=== PATIENT | female | born 1940 | race Two or more races ===

== ENCOUNTER 2023-02-01 14:38 | Outpatient (REF) | payer MEDICARE, MEDICAID, SELFPAY ==
--- NOTE | ~2023-02-01 | XR_ITS ---
EXAMINATION: XR HIP, RIGHT CLINICAL INFORMATION: Pain status-post fall. COMPARISON: None available. TECHNIQUE: AP and frog-leg lateral views of the right hip. FINDINGS: There is mild bony demineralization. The right acetabular joint space is well-maintained. There is slight peripheral osteophyte formation of the right acetabular roof. The right femoral head is smooth. There is no fracture or dislocation. Abdominopelvic herniorrhaphy mesh is noted. No foreign body is seen. XR/XR hip RT min 2V IMPRESSION: There is very mild osteoarthritic change of the right hip. No fracture or dislocation is seen.
--- NOTE | ~2023-02-01 | XR_ITS ---
EXAMINATION: XR WRIST, LEFT CLINICAL INFORMATION: Pain status-post fall. COMPARISON: None available. TECHNIQUE: PA, lateral, and oblique views of the left wrist are submitted, together with a dedicated navicular view.. FINDINGS: There is mild bony demineralization. There is a mild ulnar positive variance. No fracture or dislocation is seen. The proximal and distal carpal rows are intact. There is mild osteoarthritic change of the first carpometacarpal joint. The soft tissue planes are unremarkable, without gas or foreign body. There are atherosclerotic calcifications. XR/XR wrist LT 2V IMPRESSION: 1. No fracture or dislocation is seen. 2. There is mild osteoarthritic change of the left first carpometacarpal joint.
== END 2023-02-01 14:39 | disposition home or self-care (01) ==
LOC: HO.XRAY 14:38
PROVIDERS: PCP Internal Medicine; Visit Provider Internal Medicine
DX: M25.551 Pain in right hip (principal); M25.532 Pain in left wrist; Z91.81 History of falling
CPT/HCPCS: 73100; 73502

== ENCOUNTER 2023-12-08 10:04 | Outpatient (REF) | payer OTHER, SELFPAY ==
[2023-12-08 10:21] LABS: MANUAL DIFF FLAG NO
[2023-12-08 10:59] LABS: Basophils Percent Auto 0.3 % (0-2); Eosinophils Absolute Auto 0.1 X10*3/uL (0.0-0.4); Hematocrit 30.6 % (37.0-47.0); Hemoglobin 10.6 g/dl (12.0-16.0); Imm Gran Abs Auto 0.04 X10*3/uL (0.00-0.03); Imm Gran Pct Auto 0.7 % (0.0-0.4); Lymphocytes Absolute Auto 1.6 X10*3/uL (1.2-4.9); Lymphocytes Percent Auto 27.2 % (20-40); Mean Corpuscular HGB Conc 34.6 g/dl (31.0-35.0); Mean Corpuscular Hemoglobin 30.6 pg (27.0-33.0); Mean Corpuscular Volume 88.4 fL (80.0-98.0); Mean Platelet Volume 10.2 fL (9.4-12.3); Monocytes Absolute Auto 0.7 X10*3/uL (0.1-1.2); Neutrophils Absolute Auto 3.4 x10*3/uL (2.0-8.3); Neutrophils Percent Auto 58.8 % (45-73); Platelet Count 157 X10*3/uL (160-400); Red Blood Count 3.46 X10*6/uL (4.20-5.50); White Blood Count 5.7 X10*3/uL (4.8-10.8)
[2023-12-08 11:03] LABS: Estimated Average Glucose 128 mg/dL; Hemoglobin A1c % 6.1 % (<6.0)
[2023-12-08 11:31] LABS: Alanine Aminotransferase 21 U/L (0-31); Albumin Level 4.4 g/dL (3.5-5.0); Alkaline Phosphatase 86 U/L (39-117); Anion Gap 15 (12-20); Aspartate Amino Transferase 23 U/L (5-31); Bilirubin Total 1.3 mg/dL (0.0-1.0); Blood Urea Nitrogen 16 mg/dL (9-16); Calcium 9.8 mg/dL (8.4-10.2); Carbon Dioxide 27 mmol/L (22-29); Chloride 99 mmol/L (96-108); Cholesterol 174 mg/dL (<200); Estimated Glomerular Filt Rate > 60; Glucose Random 136 mg/dL (60-115); HDL Cholesterol 68 mg/dL (>40); LDL Cholesterol Calculated 84 mg/dL (<100); Potassium 4.6 mmol/L (3.3-5.1); Sodium 136 mmol/L (135-145); Total Protein 7.2 g/dL (6.5-8.0); Triglycerides 111 mg/dL (<150)
[2023-12-08 11:45] LABS: Vitamin D 25-OH Total 21.7 ng/mL (>30)
[2023-12-08 11:51] LABS: Microalbum/Creatinine Ratio Ur 132.2 ug/mg cr (<30)
[2023-12-08 11:53] LABS: Vitamin B12 620 pg/mL (200-900)
== END 2023-12-08 10:05 | disposition home or self-care (01) ==
LOC: HO.LAB 10:04
PROVIDERS: PCP Internal Medicine; Visit Provider Internal Medicine
DX: D64.9 Anemia, unspecified (principal); E11.9 Type 2 diabetes mellitus without complications; E78.00 Pure hypercholesterolemia, unspecified; I10 Essential (primary) hypertension; M81.8 Other osteoporosis without current pathological fracture
CPT/HCPCS: 36415; 80053; 80061; 82043; 82306; 82570; 82607; 83036; 85025

== ENCOUNTER 2024-03-15 10:48 | Outpatient (REF) | payer OTHER, SELFPAY ==
[2024-03-15 14:50] LABS: Estimated Average Glucose 126 mg/dL
[2024-03-15 15:00] LABS: Alanine Aminotransferase 31 U/L (0-31); Albumin Level 4.5 g/dL (3.5-5.0); Alkaline Phosphatase 87 U/L (39-117); Anion Gap 18 (12-20); Aspartate Amino Transferase 44 U/L (5-31); Blood Urea Nitrogen 18 mg/dL (9-16); Calcium 10.2 mg/dL (8.4-10.2); Carbon Dioxide 27 mmol/L (22-29); Chloride 97 mmol/L (96-108); Estimated Glomerular Filt Rate 58; Glucose Random 105 mg/dL (60-115); Potassium 4.6 mmol/L (3.3-5.1); Sodium 137 mmol/L (135-145); Total Protein 7.4 g/dL (6.5-8.0)
== END 2024-03-15 10:49 | disposition home or self-care (01) ==
LOC: HO.LAB 10:48
PROVIDERS: PCP Internal Medicine; Visit Provider Internal Medicine
DX: Z00.01 Encounter for general adult medical examination with abnormal findings (principal); I10 Essential (primary) hypertension; E78.00 Pure hypercholesterolemia, unspecified; E11.9 Type 2 diabetes mellitus without complications; D46.9 Myelodysplastic syndrome, unspecified
CPT/HCPCS: 36415; 80053; 83036

== ENCOUNTER 2024-04-23 09:23 | Outpatient (REF) | payer OTHER, SELFPAY ==
[2024-04-23 11:36] LABS: Anion Gap 12 (12-20); Blood Urea Nitrogen 18 mg/dL (9-16); Calcium 10.1 mg/dL (8.4-10.2); Carbon Dioxide 29 mmol/L (22-29); Chloride 97 mmol/L (96-108); Estimated Glomerular Filt Rate 60; Glucose Random 140 mg/dL (60-115); Potassium 4.6 mmol/L (3.3-5.1); Sodium 133 mmol/L (135-145)
== END 2024-04-23 09:24 | disposition home or self-care (01) ==
LOC: HO.LAB 09:23
PROVIDERS: PCP Internal Medicine; Visit Provider Nurse Practitioner
DX: I42.9 Cardiomyopathy, unspecified (principal)
CPT/HCPCS: 36415; 80048

== ENCOUNTER 2024-11-15 09:39 | Outpatient (REF) | payer OTHER, SELFPAY ==
--- OUTSIDE RECORDS SUMMARY | 2024-11-15 09:43 | XMS_ITS ---
Author Organization [facility] Address [address], [place] [id number] Care Team Providers Care Blueprint Reproducer Name Role Phone CASSIE WOODARD Primary Care Provider Unavail able ROSELIA OLMEDO, HORACIO Unavailable [phone] MANUELA NAM Unavailable [phone] Migration, Provider Unavailable Unavailable Allergies Allergen (clinical drug ingredient) Drug/Non Drug Allergy documented on EMR Reaction Allergy Type Onset Date Status acetaminophen / oxycodone Percocet Unknown Drug Allergy Active ibuprofen Motrin IB Unknown Drug Allergy Active risedronate Actonel Unknown Drug Allergy Activ e VICODIN (uncoded) Unknown Allergy Ac tive BONIVA (uncoded) Unknown Allergy Act dianna oxycodone oxyCODONE Unknown Drug Allergy Active REASON FOR VISIT Multum To [facility] Conversion Encounter Medications Medication SIG (Take, Route, Frequency, Duration) Notes Start Date End Date Status Irbesartan 150 MG 1 tab(s) orally once a day for 90 days 12/09/2020 Active Lovastatin 10 MG 1 tab(s) orally once a day Active metFORMIN HCl 850 MG 1 tab(s) orally once a day (in the morning) Active Folic Acid 1 MG 1 tab(s) orally once a day Active Ferrous Sulfate 325 (65 Fe) MG 1 tab(s) orally once a day Active Calcium 600 + D 600 MG-200 UNITS 1 TAB(S) ORALLY 3 TIMES A DAY for 30 DAY(S) *Please review and pick correct strength-formulation from [employer] options. If intended option is not shown, discontinue and re-order from Quick Search* Active OXYGEN *Please review f or potential replacement for e-prescription and drug interaction check* Active Irbesartan-hydroCHL OROthiazide 150-12.5 MG 1 tab(s) orally once a day Active Encounters Encounter Location Date Provider Diagnosis [address] [id number] 08/02/2024 Provider Migration Essential hypertension I10 Assessments Encounter Date Diagnosis (ICD Code) Assessment Notes Treat ment Notes Treatment Clinical Notes 08/02/2024 Essential hypertension (ICD-10 - I10) Plan Of Treatment Medication Medication Name Sig Start Date Stop Date Notes Irbesartan-hydroCHLOROthiazi de 150-12.5 MG 1 tab(s) orally once a day Progress Notes * HELENA BENNETTADOB: [birth year] (84 yo F)Acc No.[id number]:08/02/2024 Patient:?JOSE BENNETT Provider:?Provider Migration :1940???Age:84 Y???Sex:Female D ate:08/02/2024 Address:[address] [place] [address], [address] [place], [place] [id number] Pcp:CASSIE WOODARD Subjective: * Chief Complaints: * ???1. Multum To [facility] Con version Encounter. * Medical History:? * Medications:?Taking Irbesart an 150 MG Tablet 1 tab(s) orally once a day , Taking Lovastatin 10 MG Tablet 1 tab(s) orally once a day , Taking metFORMIN HCl 850 MG Tablet 1 tab(s) orally once a day (in the morning) , Taking Folic Acid 1 MG Tablet 1 tab(s) orally once a day , Taking Ferrous Sulfate 325 (65 Fe) MG Tablet Delayed Release 1 tab(s) orally once a day , Taking Calcium 600 + D 600 MG-200 UNITS TABLET 1 TAB(S) ORALLY 3 TIMES A DAY , Notes to Pharmacist: *Please review and pick correct strength-formulation from [facility] options. If intended option is not shown, discontinue and re-order from Quick Search*, Taking OXYGEN , Notes to Pharmacist: *Please review for potential replacement for e-prescription and drug interaction check* * Allergies:?Actonel, BONIVA, Motrin IB, Percocet, VICODIN, oxyCODONE. Objective: * Vitals:? Assessment: * Assessment: 1.?Essential hypertension - I10??? Plan: * Treatment: * Images: * Electronic signature of Prov ider Migration on 11/15/2024 at 09:43 AM EST Sign off status: Pending * Provider:?Provider Migration Date:?08/02 Generated for Jeff domingo/Daisy/Madi on:?11/15/2024 09:43 AM EST
--- OUTSIDE RECORDS SUMMARY | 2024-11-15 09:43 | XMS_ITS | Clinical Summary ---
Author Organization [facility] Address [address] [place] [address] Care Team Providers Care Semiconductor Wafer Inspector Name Role Phone Unavailable Primary Care Provider Unavailabl e Source Comments PLEASE NOTE, if this patient is a minor, it may be UNLAWFUL to discuss sensitive information that is contained in these records (such as FAMILY PLANNING, MENTAL HEALTH or SUBSTANCE ABUSE) with the minor patient's parent or other person without the patient's specific authorization.[facility] Immunizations Name Administration Dates Next Due MODERNA COVID-19 VACCINE BIV ALENT, BLUE CAP, 6M+ 08/23/2022 Moderna COVID-19 Vaccine, re d cap blue label, 12+ Primary Series 06/10/2021,10/25/2020,09/27/2020 Social History Tobacco Use Types Packs/Day Years Used Date Smoking Tobacco: Never Assessed Social Connections Answer Date Recorded Connectedness 0 06/07/2024 Financial Resource Strain Answer Date R ecorded Financial Resource Strain 0 2021 Stress Answer Date Recorded Stress 0 08/23/2022 Physical Activity Answer Date Recorded Physical Activity 0 08/23/2022 Food Insecurity Answer Date Recorded Food 0 06/19/2024 Transportation Needs Answer Date Record ed Transportation 0 08/23/2022 Housing Stability Answer Date Recorded Housing 0 08/23/2022 Safety and Environment Answer Date Byron rded Safety 0 08/23/2022 Utilities Answer Date Recorded Utilities 0 08/23/2022 Employment Answer Date Recorded Stress 0 06/07/2024 Comments Unknown Sex and Gender Information Value Date Recorded Sex Assigned at Not on file Legal Sex Female 7:38 AM PST Gender Identity Not on file Sexual Orientation Not on file Plan of Treatment Health Maintenance Due Date Last Done Comments Tobacco Screening 1940 Advanced Care Planning 1940 Hypertension Screening (#1) 1959 Medicare Annual Wellness Visit 1959 Imm-Zoster, Recombinant (1 of 2) 1991 Bone Density Screening 2006 Falls Prevention 2006 Imm-DTaP/Tdap/Td (1 - Tdap) 11/08/2011 11/07/2011 [id number] ( season) 2024 08/23/2022, 06/10/2021, 10/25/2020, Additional history exists Imm-Influenza (#1) 2024 07/09/2018, 0 06/22/2017, 07/31/2016, Additional history exists Alcohol and Drug Screen 09/24/2024 Depression Annual Screen 09/24/2024 Imm-Pneumococcal 65+ Completed 07/23/2014, 10/10/19 08 [place] - [place]
--- OUTSIDE RECORDS SUMMARY | 2024-11-15 09:43 | XMS_ITS | Patient Health Record ---
Author Organization [facility] Address [address] [place] [address] Care Team Providers Care Client Care Consultant Name Role Phone Marcia Jauregui MD, Whitney Primary Care Provider Allergies Allergen (clinical drug ingredient) Drug/Non Drug Allergy documented on EMR Reaction Allergy Type Onset Date Status risedronate Actonel stomach upset Drug Allergy A ctive diphenhydramine / ibuprofen Advil PM anxiety Drug Allergy Active ibandronate Boniva stomach upset Drug Allergy A ctive Codeine Phosphate anxiety Drug Allergy Active oxycodone Oxycodone HCl anxiety Drug Allergy Act dianna acetaminophen / oxycodone Percocet shortness of breath Drug Allergy Active Tylenol PM Extra Strength anxiety Drug Allergy Active Vicodin shortness of breath Drug Allergy Active Reason For Referral No Information Medications Medication SIG (Take, Route, Frequency, Duration) Notes Start Date End Date Status metFORMIN HCl 850 MG 1 Tablet Orally Twice a day for 90 days dm Active Fluticasone Propionate 50 MCG/ACT 2 sprays in each nostril Nasally Once a day Active Irbesartan-hydroCHLORO thiazide 150-12.5 MG 1 tablet Orally Once a day for 90 days Active Emy-Sequels 65-25 MG 1 tablet Orally O nce a day Active B-12 2500 MCG as directed Sublingual supplements Active Folic Acid 1 MG 1 tablet Orally Once a day Not-Taking Vitamin C 500 MG 1 tablet Orally Once a day supplements Active Irbesartan 150 MG 1 tablet Orally Once a day htn Not-Taking Lovastatin 10 MG 1 tablet with the evening meal Orally Once a day for 90 days chol Active Turmeric Curcumin 5-1000 MG 1 caps Orally daily Active Social History Tobacco Use: Social History Observation Description Date Details (start date - stop date) Never Smoker NA - NA Sex Assigned At : Social History Observation Description Sex Assigned At Female Tobacco Use Smoking Question Answer Notes Are you a nonsmoker Alcohol Screen Question Answer Notes Did you have a drink containing alcohol in the p ast year? No Points 0 Interpretation Negative Sexual History Question Answer Notes Had sex in the past 12 months (vaginal, oral, or anal)? No Have you ever had a Sexually transmitted disease ? No Tobacco use other than smoking: Question Answer Notes Are you an other tobacco user? No Problems Problem Type SNOMED Code ICD Code Onset Dates Problem Status W/U Status Risk Notes Problem 00128177 Atherosclerosis of aorta (I70.0) Active confirmed Problem 604256806216031 Hypertensive chronic kidney disease with stage 1 through stage 4 chronic kidney disease, or unspecified chronic kidney disease (I12.9) Active confirmed Problem 25404741 Type 2 diabetes mellitus with diabetic chronic kidney disease (E11.22) Active confirmed Problem 46684397 Hyperlipidemia, unspecified (E78.5) Active confirmed Problem 18889499 Type 2 diabetes mellitus with other specified complication (E11.69) Active confirmed Problem Hypertensive heart AND chronic kidney disease with congestive heart failure (83220037566505) Hypertensive heart and chronic kidney disease with heart failure and stage 1 through stage 4 chronic kidney disease, or unspecified chronic kidney disease (I13.0) Active confirmed Problem 23879130 Liver cyst (K76.89) Active confirmed Problem 893912166 Myelodysplastic syndrome (D46.9) Active confirmed Problem 19787251 Left ventricular hypertrophy (I51.7) Active confirmed Problem 254042766 Congestive heart failure, NYHA class 1 and ACC/AHA stage B (I50.9) Active confirmed Problem 59564614 DM (diabetes mellitus), type 2 with peripheral vascular complications (E11.51) Active confirmed Problem 23935487 Type 2 diabetes mellitus with both eyes affected by mild nonproliferative retinopathy without macular edema, without long-term current use of insulin (E11.3293) Active confirmed Problem Chronic kidney disease stage 2 (139249507) Stage 2 chronic kidney disease (N18.2) Active confirmed Problem 123922133 Chronic kidney disease, stage 3a (N18.31) Active confirmed Plan Of Treatment Future Test Test Name Order Date Comp. Metabolic Panel (14) (CMP) 021 Uric Acid, Serum 07/02/2021 PTH, Intact 07/02/2021 Vitamin D, 25-Hydroxy 07/02/2021 Lipid Panel 07/02/2021 Homocyst(e)ine, Plasma 07/02/2021 Comp. Metabolic Panel (14) (CMP) 021 Hgb A1c with eAG Estimation 07/02/2021 CBC (INCLUDES DIFF/PLT) 07/02/2021 Albumin/Creatinine Ratio, Random Urine [id number] and [id number] 07/02/2021 Insurance Providers Payer Name Payer Address Payer Phone Subscriber Number Group Number Insured Name Patient Relationship to Insured Coverage Start Date Coverage End Date [employer] ADV HMO [address] [place] [address] [id number] JOSE BENNETT Self - patient is the insured Medical (General) History Medical History History ICD Code diabetes dyslipidemia hypertension retinopathy liver cyst renal cyst myelodisplastic syndrome Surgical History Surgery Date(Month/Year) hernia 2017 eye surgery 2013
--- OUTSIDE RECORDS SUMMARY | 2024-11-15 09:43 | XMS_ITS | Patient Health Record ---
Author Organization [facility] Address [address] [place], [place] [address] Care Team Providers Care Registered Nurse Teacher Name Role Phone CASSIE WOODARD Primary Care Provider Unavail able ROSELIA OLMEDO, HORACIO Unavailable [phone] MANUELA NAM Unavailable [phone] Migration, Provider Unavailable Unavailable Allergies Allergen (clinical drug ingredient) Drug/Non Drug Allergy documented on EMR Reaction Allergy Type Onset Date Status acetaminophen / oxycodone Percocet Unknown Drug Allergy Active ibuprofen Motrin IB Unknown Drug Allergy Active risedronate Actonel Unknown Drug Allergy Activ e VICODIN (uncoded) Unknown Allergy Ac tive BONIVA (uncoded) Unknown Allergy Act dianna oxycodone oxyCODONE Unknown Drug Allergy Active Reason For Referral No Information Medications Medication SIG (Take, Route, Frequency, Duration) Notes Start Date End Date Status Calcium 600 + D 600 MG-200 UNITS 1 TAB(S) ORALLY 3 TIMES A DAY for 30 DAY(S) *Please review and pick correct strength-formulation from [employer] options. If intended option is not shown, discontinue and re-order from Quick Search* Active OXYGEN *Please review f or potential replacement for e-prescription and drug interaction check* Active Irbesartan-hydroCHL OROthiazide 150-12.5 MG 1 tab(s) orally once a day Active Irbesartan 150 MG 1 tab(s) orally once a day for 90 days 12/09/2020 Active Lovastatin 10 MG 1 tab(s) orally once a day Active metFORMIN HCl 850 MG 1 tab(s) orally once a day (in the morning) Active Folic Acid 1 MG 1 tab(s) orally once a day Active Ferrous Sulfate 325 (65 Fe) MG 1 tab(s) orally once a day Active Social History Tobacco Use: Social History Observation Description Date Details (start date - stop date) Never Smoker NA - NA Alcohol Screen Question Answer Notes Did you have a drink contain ing alcohol in the past year? Yes How often did you have a dri nk containing alcohol in the past year? Monthly or less (1 point) How many drinks did you have on a tpical day when you were drinking in the past year? 1 or 2 (0 points) How often did you have six o r more drinks on one occassion in the past year? Never (0 points) Points 1 Interpretation Negative Smoking Question Answer Notes Are you a: never smoked Problems Problem Type SNOMED Code ICD Code Onset Dates Problem Status W/U Status Risk Notes Problem Essential hypertension (98619690) Essential hypertension (I10) Active confirmed Problem 428363282 Mixed hyperlipidemia (E78.2) Active confirmed Problem Left bundle branch block (71580358) LBBB (left bundle branch block) (I44.7) Active confirmed Problem 042055574518135 Obesity (BMI 30.0-34.9) (E66.9) Active confirmed Problem 799025462 Type 2 diabetes mellitus without complication, without long-term current use of insulin (E11.9) Active confirmed Problem 521547976 MDS (myelodysplastic syndrome) (D46.9) Active confirmed Encounters Encounter Location Date Provider Diagnosis [address] [id number] 08/02/2024 Provider Migration Essential hypertension I10 Assessments Encounter Date Diagnosis (ICD Code) Assessment Notes Treat ment Notes Treatment Clinical Notes 08/02/2024 Essential hypertension (ICD-10 - I10) Plan Of Treatment Pending Test Test Name Order Date ECHO 2D MODE WITH DOPPLER IF NECESSARY 12/09/2020 EKG 12/09/2020 Insurance Providers Payer Name Payer Address Payer Phone Subscriber Number Group Number Insured Name Patient Relationship to Insured Coverage Start Date Coverage End Date Who is Undercover [employer] [address] [place] [address] [id number] SABRINA, JOSE Self - patient is the insured Medical (General) History Medical History History ICD Code LBBB Hypertension Hyperlipidemia Type II diabetes Obesity Osteoporosis Glaucoma Surgical History Surgery Date(Month/Year) Cholecystectomy Hernia repair Intestinal Sx.
--- OUTSIDE RECORDS SUMMARY | 2024-11-15 09:43 | XMS_ITS | Data Portability ---
Author Organization [employer] [place] [employer] Address [address] [place] [phone] Care Team Providers Care Industrial Pharmacist Name Role Phone HIM CCA OTHER Assessment Encounter Date Assessment Date Assessment LastModified by Organization Details LastModified Time 09/19/2024 09/19/2024 I provided real -time medical direction via phone for this encounter and was available for additional phone-based assistance as needed. I have reviewed and agree with the Assessment and Plan as documented by the Validation Manager. Patient given the opportunity to ask questions. Our service contacted for an assessment of: Viral upper respiratory tract infection As per above, patient with about a week's worth of nasal congestion and a nonproductive cough. Patient taking [id number] Mucinex. On a positive trajectory. Denies fever chills. No sick contacts. Per dye expert on the scene, vital signs are stable and patient is afebrile. No hypoxemia seen on room air. Lungs are clear to auscultation per dye expert on the scene Impression: Viral URI with over a week's worth of symptoms on a positive trajectory Plan: Continue Mucinex as prescribed. Red flags discussed as when to seek a higher level of care or recall this service. All questions answered. Allergies: Reviewed PCP f/u: We discussed the diagnostic uncertainty of home visits and the risk associated with this. In this case, the patient and I felt this to be an acceptable and reasonable amount of risk given the benefit of avoiding an ED visit. We discussed the need to seek care urgently/emergen tly in the setting of any new or worsening serious symptoms, particularly fever chills [email or web address] Not available 09/19/2024 19:12:30 Plan of Treatment Reminders Order Date Submit Date Provider Last Modified By Organization Details Last Modified Time Details Appointments None record ed. Lab None record ed. Referral None record ed. Procedures None record ed. Surgeries None record ed. Imaging None record ed. Medication Orders None record ed. Patient TargetsNo targets recorded. Patient InstructionsNo instructions recorded. Reason for Referral None Reported. Medical Equipment None Reported. Allergies Allergen ID Allergen Name Allergen Category Reaction Reaction Severity Criticality Documentation Date Start Date Code Code System Note Provider Name and Address Organization Details Recorded Time 59975 oxycodone medicatio n Not available Not available Not available 09/19/2024 7804 RxNorm Not Available [facility] 4 12:09:50 83276 hydrocodo ne Not available Not available Not available Not available 09/19/2024 5489 RxNorm Not Available [facility] 4 12:09:50 47101 acetamino phen / oxycodone medicatio n Not available Not available Not available 09/19/2024 11046 3 [facility] 88199 Boniva medicatio n Not available Not available Not available 09/19/2024 79606 4 [facility] 12:09:50 81361 Tylenol medicatio n Not available Not available Not available 09/19/202488171 3 [facility] 12:[facility]50 Medications Name Sig Start Date Stop Date Status Note LastModified by Organization Details LastModified Time lovastatin 40 mg tablet TOME 1 TABLETA POR V A ORAL TODOS LOS D active Not Available Not Available No t Available metformin 850 mg tablet TOME 1 TABLETA POR V A ORAL DOS VECES AL D A active Not Available Not Available No t Available glimepiride 1 mg tablet TAKE 1 TABLET ORALLY WITH BREAKFAST OR THE FIRST MAIN MEAL OF THE DAY ONCE A DAY FOR 90 DAYS active Not Available Not Available No t Available ibuprofen 400 mg tablet TAKE ONE TABLET BY MOUTH THREE TIMES A DAY active Not Available Not Available No t Available gabapentin 300 mg capsule TOME 1 C PSULA POR V A ORAL PORTILLO VECES AL D A POR 10 D active Not Available Not Available No t Available irbesartan 75 mg tablet TOME 1 TABLETA POR V A ORAL TODOS LOS D active Not Available Not Available No t Available cyanocobalami n (vit B-12) 1,000 mcg sublingual tablet TAKE 1 LOZENGE BY MOUTH EVERY SUNDAY, SUNDAY AND SUNDAY active Not Available Not Available No t Available furosemide 20 mg tablet TOME 1 TABLETA POR V A ORAL TODOS LOS D FOR 90 DAYS active Not Available Not Available No t Available irbesartan 150 mg tablet TOME BRAXTON TABLETA TODOS LOS D active Not Available Not Available No t Available amoxicillin 875 mg-potassium clavulanate 125 mg tablet TOME 1 TABLETA POR V A ORAL CADA 12 HORAS POR 7 D active Not Available Not Available N ot Available Vitamin D3 25 mcg (1,000 unit) tablet TOME 1 TABLETA POR V A ORAL TODOS LOS D active Not Available Not Available No t Available Insta-Glucose (with dextrin) 24 gram/31 gram oral gel DIRECTED ORALLY FOR POC LESS THAN 70 99 DAYS active Not Available Not Available No t Available Vitals Date Recorded Body temperature Respiratory rate Heart rate Body weight Oxygen saturation Oxygen saturation in Arterial blood by Pulse oximetry Systolic blood pressure Diastolic blood pressure Provider Name and Address Organization Details Last Updated DateTime 4 100.1 [degF] 16 /min 98 /min 92637.6 16 g 95 % 95 % 156 mm[Hg] 80 mm[Hg] Not Available [facility] 4 19:10:28 Social History None recorded. Functional Status None recorded. Mental Status None recorded. Family History Nothing Reported. Medical History No medical history recorded. Gynecological HistoryNo gynecological history recorded. Obstetrics History GPAL:G 0 P 0 0 0 0 Past Encounters Encounter ID Performer Location Encounter Start Date Encounter Closed Date Diagnosis/Indication Diagnosis SNOMED-CT Code Diagnosis ICD10 Code Diagnosis Note [id number] Ana Maria Burger MD [facility] [address] [place] [phone] 09/19/2024 19:10:26 09/19/2024 20:12:26 Viral upper respiratory tract infection 426092657 J06.9 Health Concerns Section Related Observation LastModified by Organization Detai ls LastModified Time None Recorded Concern Status LastModified by Organization Details LastModified Time None Recorded Advance Directives Directive None Recorded Payers Encounter Date Sequence Insurance Name Policy Number Policy Rhodes Covered Member ID Rhodes Member ID Guarantor Name 09/19/2024 1 [facility] - DOS ON OR AFTER 2022 - DUAL ELIGIBLE - [facility] [employer] AND ONE [employer] (MEDICARE REPLACEMENT/ADV ANTAGE - HMO) Nicole Gus [id number] Nicole Weber Notes Date Note Type Note Provider Name and Address Organization Details Recorded Time 09/19/2024 text/html [facility] Nurse Triage Notes (Roseline Farias - RN): Reason For Request: Patient is congested, and difficult to breath at times, sick for a few days, and has gotten a nose bleed in the last few days. Patient Reports: Cough, fever greater than 2 days ; Cough; Shortness of breath with exertion; Pain with inspiration Denies: Increased work of breathing/labored ? with or without fever Unable to speak in full sentences without distress Discoloration of skin -cyanosis Needs to sleep sitting up, can? t catch breath Shortness of breath in setting of confusion Lower extremity swelling History of asthma, increased use of inhaler COPD COVID Exposure Sputum increase Chief Complaints: Breathing problems PMH: Hyperlipidemia, Hypertension, Diabetes Mellitus Type 2 Comments: Cold symptoms started on Sunday with voice hoarseness. Increased congestion, non-productive cough and body aches today. Taking Mucinex. Reported a fever on Sunday, took Tylenol with relief. Feels short of breath with coughing episdoes. Reports chest pain with coughing. .................. .................. .................. .................. .................. .................. .................. ............... Validation Manager Note From Ronald Chairez: Pt co dry cough for 5 days. Pt denies NC, runny nose, body aches or chills, CP, SOB, dizziness, headache or NVD. Baseline vitals assessed WNL, Lungs had mild rhonchi bilaterally. Pt taking musinex with some relief. Pt daughter sts she going out to pharmacy to get another bottle for her. Pt sts has been taking Tylenol as well. Pt took 1g Tylenol on arrival. Pt slightly febrile. [facility] [place] contacted and advised to continue with self care and otc musinex. Tylenol for fever. Education provided on signs indicating the ER. Pt advised to monitor symptoms and advised if worsen to contact PCP for X-rays. .................. .................. .................. .................. .................. .................. .................. ............... [facility] [place] Consulted: Ana Maria Burger .................. .................. .................. .................. .................. .................. .................. ............... Disposition: Fulfilled Ana Maria Burger MD [address] [facility],[address], [place], [phone], [employer] 09/19/2024 19:12:38 OBGyn Episode No OBEpisode recorded.
--- OUTSIDE RECORDS SUMMARY | 2024-11-15 09:43 | XMS_ITS | Data Portability ---
Author Organization [facility], Main Office Address [address] [facility] [address] [place] [address] Care Team Providers Care Counter Help Name Role Phone PATRICIAELLIOT JEFFRIES Primary Care Provider OSMAR TOBIN Track Patrol FLORENCIO BRODY Storage Battery Tester KE CARLOS Clinical Trial Coordinator [facility] (DIV OF HEMATOLOGY ONCOLOGY) Tile Setter Supervisor Assessment No assessment recorded. Plan of Treatment Reminders Order Date Submit Date Provider Last Modified By Organization Details Last Modified Time Details Appointments None recorded. Lab lipid panel, serum 2018 019 rkanu [facility], [address] [place], [address], 9 11:47:10 CMP, serum or plasma 2018 019 rkanu [facility], [address] [place], [address], 9 11:47:10 CBC w/ auto diff 2018 019 rkanu [facility], [address] [place], [address], 9 11:47:10 urinalysi s, complete 2018 019 NICOLETTE [facility], [address] [place], [address], 9 11:17:01 HbA1c (hemoglob in A1c), blood 2018 019 rkanu [facility], [address] [place], [address], 9 11:47:10 microalbu min, urine 2018 019 rkanu [facility], [address] [place], [address], 9 11:47:10 urinalysi s complete, reflex culture 2017 018 abolcun [facility], [address] [place], [address], 9 10:43:49 CBC w/ auto diff 2017 018 NICOLETTE [facility], [address], [address], [place], [address], 8 19:58:52 hepatic function panel, serum 2017 018 NICOLETTE [facility], [address], [address], [place], [address], 8 21:40:09 lipase, serum or plasma 2017 018 NICOLETTE [facility], [address], [address], [place], [address], 8 21:40:10 urinalysi s complete, reflex culture 2017 018 NICOLETTE [facility], [address] [place], [address], 8 01:46:45 hemoglobi n A1C, fingersti ck 2017 018 [email or web address] In-Office Order, Internal Use Only DO Not Attach Compendium DO Not Attach Compendium, Do Not Delete/merge, [id number] 8 10:48:02 Referral nutrition ist/dieti álvaro referral 2018 019 abolcun Not available 9 11:50:43 nutrition ist/dieti álvaro referral 2018 019 abolcun Not available 9 11:50:43 gastroent erologist referral - Needs colon cancer screening in May 282018 019 [email or web address] Angela Wiseman MD, [address], [place], [address], 9 11:26:40 diabetic ophthalmo logy referral 2018 019 abolcun Not available 9 10:31:55 ENT referral - for eval of pt with b/l hearing loss 2017 NICOLETTE Handy MD, [address], [address], [place], [address], 9 13:45:21 Procedures None recorded. Surgeries None recorded. Imaging bone density 2018 019 abolcun Not available 9 13:35:52 MAMMO, screening , bilateral - Perform Diagnosti c Mammogram and Breast Ultrasoun d if needed / Perform Ultrasoun d Guided Aspiratio n and/or Breast Biopsy if warranted 2018 019 NICOLETTE Not available 9 15:37:13 MRI, internal auditory canal, w/wo contrast - rule out acoustic neuroma/C [facility] 2017 NICOLETTE Not available 8 15:48:57 Medication Orders Cipro 500 mg tablet 2018 019 abolcun [facility], [address] [place], [address], 9 10:46:32 codeine 10 mg-guaife nesin 100 mg/5 mL oral liquid 2018 019 INTERFACE [facility], [address] [place], [address], 9 11:30:43 omeprazol e 20 mg capsule,d elayed release 2017 018 INTERFACE [facility], [address] [place], [address], 8 11:30:37 omeprazol e 20 mg capsule,d elayed release 2017 018 INTERFACE [facility], [address] [place], [address], 8 10:48:05 valsartan 80 mg tablet 2017 018 abolcun Not available 9 10:47:12 Patient Targets Encounter Date Encounter Id Patient Goals Patient Target Last Modified By Organization Details Last Modified Time 07/09/2018 [id number] Microalbumin/Cr eatinine Ratio yearly Not available Not available Not available Blood Pressure 130 / 80 Not available Not available Not available Hemoglobin A1C 2 times per yr Not available Not available Not available Hemoglobin A1C <7 Not available Not available Not available LDL Direct <100 Not available Not available Not available Cholesterol, LDL <100 Not available Not available Not available Pt advised and agrees to do moderate exercise (such as walking) for approximately 150 minutes per week; to decrease carbohydrate intake (25 % of total carbohydrates or less); and to monitor blood glucose as directed Will bring meter and/or readings to appointments. Patient preferences and goals incorporated in plan and updated/modifie d as needed to reflect progress toward goal. rebekah Not available 07/09/2018 10:49:45 08/08/2018 [id number] Blood Pressure 140 / 90 Not available Not available Not available jail goal of Exercise level Moderate Not available Not available Not available Tobacco Smoking Status Never Not available Not available Not available Pt advised and agrees to eat a low salt low fat diet; to do moderate exercise (such as walking) 150 minutes per week; to limit alcohol intake (goal of 2 drinks per day or less for men or 1 for woman). and to monitor dietary sodium. Will monitor home blood pressures and bring readings to appointments. Patient preferences and goals incorporated in plan and updated/modifie d as needed to reflect progress toward goal. [email or web address] Not available 08/26/2018 09:21:43 Patient Instructions Encounter Date Encounter Id Patient Instructions Last Modified By Organization Details Last Modified Time 07/09/2018 [id number] hearing loss: ca re instructions awychowski Not available 07/09/2018 10:48:02 dizziness: care instructions awychowski Not available 07/09/2018 10:48:02 type 2 diabetes: care instructions awychowski Not available 07/09/2018 10:48:02 high blood press ure: care instructions awychowski Not available 07/09/2018 10:48:02 learning about h igh blood pressure awychowski Not available 07/09/2018 10:48:02 08/08/2018 [id number] Urinary Tract Infection (UTI) in Women: Care Instructions [email or web address] Not available 08/08/2018 11:30:36 stop valsartan, continue hydrochlorothiazide for now awychowski Not available 08/08/2018 11:31:44 Medications (OTC , herbal therapies, supplements) reviewed and reconciled with patient and or caregiver, including potential side effects, drug interactions, instructions, and the consequences of not taking medication. Reviewed potential barriers to medication adherence, such as side effects from medication or cost of medication. awychowski Not available 08/26/2018 09:22:02 12/17/2018 [id number] call or return f or worsening or concerns [email or web address] Not available 12/17/2018 09:11:51 [facility], all current and discharge medications (OTC, herbal therapies, supplements) reviewed and reconciled with patient and or caregiver, including potential side effects, drug interactions, instructions, and the consequences of not taking medication. Reviewed potential barriers to medication adherence, such as side effects from medication or cost of medication. [email or web address] Not available 12/17/2018 08:18:34 01/07/2019 [id number] high cholesterol : care instructions awychowski Not available 01/07/2019 11:16:57 preventing falls : care instructions awychowski Not available 01/07/2019 11:16:57 medicare prevent dianna services guide (female 74yrs and under) awychowski Not available 01/07/2019 11:16:57 starting a weigh t loss plan: care instructions awychowski Not available 01/07/2019 11:16:57 starting a weigh t loss plan: care instructions awychowski Not available 01/07/2019 11:16:57 high blood press ure: care instructions awychowski Not available 01/07/2019 11:16:57 learning about h igh blood pressure awychowski Not available 01/07/2019 11:16:57 learning about c olon cancer awychowski Not available 01/07/2019 11:16:57 Diabetic Foot Exam awychowski Not availa ble 01/07/2019 11:16:57 Diabetic Eye Exam awychowski Not availab le 01/07/2019 11:16:57 type 2 diabetes: care instructions awychowski Not available 01/07/2019 11:16:57 Per Medicare guidelines I have discussed OUD (Opiate Use Disorder) with the patient and assessed / discussed the benefit of non opioid pain therapies , even if the patient does not have OUD, but is possibly at risk abolcun Not available 01/07/2019 10:44:09 Reason for Referral ENT Referral for Bilateral h earing loss for eval of pt with b/l hearing loss Referring Physician: Elliot Johnson [facility] Michael, Encounter Date: 07/09/2018 Diabetic Ophthalmology Refer ral for Type 2 diabetes mellitus without complication Referring Physician: Elliot Johnson [facility] Michael, Encounter Date: 01/07/2019 Theater Teacher Referral for Screening for malignant neoplasm of colon Needs colon cancer screening in Sept Referring Physician: Family Michael Gasca, Encounter Date: 01/07/2019 Telephone Answerer/dietitian Refer ral for Obesity Referring Physician: Family Michael Gasca, Encounter Date: 01/07/2019 Telephone Answerer/dietitian Refer ral for Obesity Referring Physician: Elliot Johnson [facility] Michael, Encounter Date: 01/07/2019 Results Created Date Observation Date Name Description Value Unit Range Abnormal Flag Note LastModifiedBy Organization Detail LastModifiedTime 07/09/20 18 07/09/2018 hemog lobin A1C, finge rstic k HA1C 6.5 % 4-6 Not Available In-Office Order Internal Use Only DO Not Attach Compendium DO Not Attach Compendium, Do Not Delete/merge, [id number] 07/09/2018 10:12:40 07/17/20 18 07/17/2018 CBC w/ auto diff WBC 5.6 K/mm3 (4.0-1 1.0) Not Available [facility] [address] [place], [address], 07/17/2018 19:58:52 07/17/20 18 07/17/2018 CBC w/ auto diff RBC 3.58 M/mm3 (4.20- 5.40) low Not Available [facility] [address] [place], [address], 07/17/2018 19:58:52 07/17/20 18 07/17/2018 CBC w/ auto diff HGB 10.9 gm/dL (11.7- 15.5) low Not Available [facility] [address] [place], [address], 07/17/2018 19:58:52 07/17/20 18 07/17/2018 CBC w/ auto diff HCT 32.6 % (35.7- 45.8) low Not Available [facility] [address] [place], [address], 07/17/2018 19:58:52 07/17/20 18 07/17/2018 CBC w/ auto diff MCV 91.1 fL (80.0- 100.0) Not Available [facility] [address] [place], [address], 07/17/2018 19:58:52 07/17/20 18 07/17/2018 CBC w/ auto diff MCH 30.4 pg (27.0- 34.0) Not Available [facility] [address] [place], [address], 07/17/2018 19:58:52 07/17/20 18 07/17/2018 CBC w/ auto diff MCHC 33.4 g/dL (33.0- 37.0) Not Available [facility] [address] [place], [address], 07/17/2018 19:58:52 07/17/20 18 07/17/2018 CBC w/ auto diff plt 115 K/mm3 (150-4 60) low Not Available [facility] [address] [place], [address], 07/17/2018 19:58:52 07/17/20 18 07/17/2018 CBC w/ auto diff RDW-SD 43.0 fL (<47.0 ) Not Available [facility] [address] [place], [address], 07/17/2018 19:58:52 07/17/20 18 07/17/2018 CBC w/ auto diff MPV 12.0 fL (9.4-1 2.4) Not Available [facility] [address] [place], [address], 07/17/2018 19:58:52 07/17/20 18 07/17/2018 CBC w/ auto diff automated NRBC 0.0 #/100 _WBC' s Not Available [facility] [address] [place], [address], 07/17/2018 19:58:52 07/17/20 18 07/17/2018 CBC w/ auto diff abs. NRBC 0.0 K/mm3 Not Available [facility] [address] [place], [address], 07/17/2018 19:58:52 07/17/20 18 07/17/2018 CBC w/ auto diff neut # 3.0 K/mm3 (1.3-7 .0) Not Available [facility] [address] [place], [address], 07/17/2018 19:58:52 07/17/20 18 07/17/2018 CBC w/ auto diff lymph # 1.8 K/mm3 (0.8-3 .1) Not Available [facility] [address], [address], 07/17/2018 19:58:52 07/17/20 18 07/17/2018 CBC w/ auto diff mono# 0.7 K/mm3 (0.4-0 .9) Not Available [facility] [address] [place], [address], 07/17/2018 19:58:52 07/17/20 18 07/17/2018 CBC w/ auto diff eo # 0.1 K/mm3 (0.0-0 .4) Not Available [facility] [address] [place], [address], 07/17/2018 19:58:52 07/17/20 18 07/17/2018 CBC w/ auto diff baso # 0.0 K/mm3 (0.0-0 .1) Not Available [facility] [address], [address], 07/17/2018 19:58:52 07/17/20 18 07/17/2018 CBC w/ auto diff abs. imm gran 0.0 K/mm3 Not Available [facility] [address] [place], [address], 07/17/2018 19:58:52 07/17/20 18 07/17/2018 CBC w/ auto diff neut 54.0 % (44-76 ) Not Available [facility] [address] [place], [address], 07/17/2018 19:58:52 07/17/20 18 07/17/2018 CBC w/ auto diff lymph 31.9 % (15-43 ) Not Available [facility] [address] [place], [address], 07/17/2018 19:58:52 07/17/20 18 07/17/2018 CBC w/ auto diff monocyte 12.1 % (4.5-1 0.5) high Not Available [facility] [address] [place], [address], 07/17/2018 19:58:52 07/17/20 18 07/17/2018 CBC w/ auto diff eo 1.1 % (0-6) Not Available [facility] [address] [place], [address], 07/17/2018 19:58:52 07/17/20 18 07/17/2018 CBC w/ auto diff baso 0.5 % (0-2) Not Available [facility] [address] [place], [address], 07/17/2018 19:58:52 07/17/20 18 07/17/2018 CBC w/ auto diff imm gran 0.4 % (0.0-0 .6) Not Available [facility] [address] [place], [address], 07/17/2018 19:58:52 07/17/20 18 07/17/2018 hepat ic funct ion panel , serum bilirubin,to jesus 0.8 mg/dL (0-1.2 ) Not Available [facility] [address] [place], [address], 07/17/2018 21:40:09 07/17/20 18 07/17/2018 hepat ic funct ion panel , serum bilirubin, direct 0.2 mg/dL (0-0.3 ) Not Available [facility] [address] [place], [address], 07/17/2018 21:40:09 07/17/20 18 07/17/2018 hepat ic funct ion panel , serum indirect bilirubin 0.6 mg/dL (0.0-0 .7) Not Available [facility] [address] [place], [address], 07/17/2018 21:40:09 07/17/20 18 07/17/2018 hepat ic funct ion panel , serum albumin 4.5 gm/dL (3.4-4 .8) Not Available [facility] [address] [place], [address], 07/17/2018 21:40:09 07/17/20 18 07/17/2018 hepat ic funct ion panel , serum AST 28 U/L (0-32) Not Available [facility] [address] [place], [address], 07/17/2018 21:40:09 07/17/20 18 07/17/2018 hepat ic funct ion panel , serum ALT 15 U/L (0-33) Not Available [facility] [address] [place], [address], 07/17/2018 21:40:09 07/17/20 18 07/17/2018 hepat ic funct ion panel , serum alk phos 76 U/L (35-10 4) Not Available [facility] [address] [place], [address], 07/17/2018 21:40:09 07/17/20 18 07/17/2018 hepat ic funct ion panel , serum total protein 7.1 gm/dL (6.2-8 .2) Not Available [facility] [address] [place], [address], 07/17/2018 21:40:09 07/17/20 18 07/17/2018 lipas e, serum or plasm a lipase 30 U/L (13-60 ) Not Available [facility] [address] [place], [address], 07/17/2018 21:40:10 07/18/20 18 07/19/2018 urina lysis compl ete, refle x cultu re appear/color LIGHT YELLO W CLEAR Not Available [facility] [address] [place], [address], 07/19/2018 01:46:44 07/18/20 18 07/19/2018 urina lysis compl ete, refle x cultu re sp. gravity 1.005 (1.002 -1.030 ) Not Available [facility] [address] [place], [address], 07/19/2018 01:46:44 07/18/20 18 07/19/2018 urina lysis compl ete, refle x cultu re urine pH 6.0 (4.0-8 .0) Not Available [facility] [address] [place], [address], 07/19/2018 01:46:44 07/18/20 18 07/19/2018 urina lysis compl ete, refle x cultu re urine albumin NEGATI VE (neg) Not Available [facility] [address] [place], [address], 07/19/2018 01:46:44 07/18/2007/19/2018 urina lysis compl ete, refle x cultu re urine glucose NEGATI VE (neg) Not Available [facility] [address] [place], [address], 07/19/2018 01:46:44 07/18/2007/19/2018 urina lysis compl ete, refle x cultu re urine ketones NEGATI VE (neg) Not Available [facility] [address] [place], [address], 07/19/2018 01:46:44 07/18/2007/19/2018 urina lysis compl ete, refle x cultu re urine bilirubin NEGATI VE (neg) Not Available [facility] [address] [place], [address], 07/19/2018 01:46:44 07/18/2007/19/2018 urina lysis compl ete, refle x cultu re urine hemoglobn NEGATI VE (neg) Not Available [facility] [address] [place], [address], 07/19/2018 01:46:44 07/18/2007/19/2018 urina lysis compl ete, refle x cultu re urine nitrite NEGATI VE (neg) Not Available [facility] [address] [place], [address], 07/19/2018 01:46:44 07/18/2007/19/2018 urina lysis compl ete, refle x cultu re urine leukocyte 3+ (neg) abnormal Not Available [facility] [address] [place], [address], 07/19/2018 01:46:44 07/18/2007/19/2018 urina lysis compl ete, refle x cultu re urobilinogen NORMAL mg/dL (norm) Not Available [facility] [address] [place], [address], 07/19/2018 01:46:44 07/18/20 18 07/19/2018 urina lysis compl ete, refle x cultu re urine WBC's 46 /hpf (0-5) high Not Available [facility] [address] [place], [address], 07/19/2018 01:46:44 07/18/20 18 07/19/2018 urina lysis compl ete, refle x cultu re urine RBC's 1 /hpf (<3) Not Available [facility] [address] [place], [address], 07/19/2018 01:46:44 07/18/2007/19/2018 urina lysis compl ete, refle x cultu re bacteria MODERA TE hpf (neg) abnormal Not Available [facility] [address] [place], [address], 07/19/2018 01:46:44 07/18/20 18 07/19/2018 urina lysis compl ete, refle x cultu re squamous epith 1 /hpf Not Available [facility] [address], [address], 07/19/2018 01:46:44 07/18/20 18 07/19/2018 urina lysis compl ete, refle x cultu re clarity CLEAR (clear ) Not Available [facility] [address] [place], [address], 07/19/2018 01:46:44 07/18/20 18 07/19/2018 urina lysis compl ete, refle x cultu re culture indication CULTUR E INDICA NARGIS Not Available [facility] [address] [place], [address], 07/19/2018 01:46:44 07/18/20 18 07/19/2018 cultu re, urine specimen description URINE Not Available [facility] [address] [place], [address], 07/21/2018 11:00:23 07/18/20 18 07/19/2018 cultu re, urine special requests NONE Not Available [facility] [address] [place], [address], 07/21/2018 11:00:23 07/18/20 18 07/21/2018 cultu re, urine culture >100,0 00 COL/ML KLEBSI ANDREW OXYTOC A Not Available [facility] [address] [place], [address], 07/21/2018 11:00:23 07/18/20 18 07/21/2018 cultu re, urine report status FINAL 2017 Not Available [facility] [address] [place], [address], 07/21/2018 11:00:23 07/18/20 18 07/21/2018 cultu re, urine organism ORGANI SM >100,0 00 COL/ML KLEBSI ANDREW OXYTOC A Not Available [facility] [address] [place], [address], 07/21/2018 11:00:23 07/18/20 18 07/21/2018 cultu re, urine method METHOD MIN. INHIB. CONC. (MCG/M L) Not Available [facility] [address] [place], [address], 07/21/2018 11:00:23 07/18/20 18 07/21/2018 cultu re, urine ampicillin AMPICI LLIN RESIST ANT resistant Not Available [facility] [address] [place], [address], 07/21/2018 11:00:23 07/18/20 18 07/21/2018 cultu re, urine ampicillin/s ulbactam AMPICI LLIN/S ULBACT AM SUSCEP TIBLE susceptib le Not Available [facility] [address] [place], [address], 07/21/2018 11:00:23 07/18/20 18 07/21/2018 cultu re, urine amoxicillin/ clavulanic acid AMOXIC ILLIN/ CLAVUL AN SUSCEP TIBLE susceptib le Not Available [facility] [address] [place], [address], 07/21/2018 11:00:23 07/18/20 18 07/21/2018 cultu re, urine cefazolin CEFAZO PRABHA SUSCEP TIBLE susceptib le Not Available [facility] [address] [place], [address], 07/21/2018 11:00:23 07/18/20 18 07/21/2018 cultu re, urine cefepime CEFEPI ME SUSCEP TIBLE susceptib le Not Available [facility] [address] [place], [address], 07/21/2018 11:00:23 07/18/20 18 07/21/2018 cultu re, urine ceftriaxone CEFTRI AXONE SUSCEP TIBLE susceptib le Not Available [facility] [address] [place], [address], 07/21/2018 11:00:23 07/18/20 18 07/21/2018 cultu re, urine ciprofloxaci n CIPROF LOXACI N SUSCEP TIBLE susceptib le Not Available [facility] [address] [place], [address], 07/21/2018 11:00:23 07/18/20 18 07/21/2018 cultu re, urine gentamicin GENTAM ICIN SUSCEP TIBLE susceptib le Not Available [facility] [address] [place], [address], 07/21/2018 11:00:23 07/18/20 18 07/21/2018 cultu re, urine levofloxacin LEVOFL OXACIN SUSCEP TIBLE susceptib le Not Available [facility] [address] [place], [address], 07/21/2018 11:00:23 07/18/20 18 07/21/2018 cultu re, urine meropenem MEROPE NEM SUSCEP TIBLE susceptib le Not Available [facility] [address] [place], [address], 07/21/2018 11:00:23 07/18/20 18 07/21/2018 cultu re, urine nitrofuranto in NITROF URANTO IN SUSCEP TIBLE susceptib le Not Available [facility] [address] [place], [address], 07/21/2018 11:00:23 07/18/20 18 07/21/2018 cultu re, urine piperacillin /tazobactam PIPERA CILLIN /TAZOB AC SUSCEP TIBLE susceptib le Not Available [facility] [address] [place], [address], 07/21/2018 11:00:23 07/18/20 18 07/21/2018 cultu re, urine trimeth/sulf amethox TRIMET H/SULF AMETHO X SUSCEP TIBLE susceptib le Not Available [facility] [address] [place], [address], 07/21/2018 11:00:23 07/18/20 18 07/21/2018 cultu re, urine tetracycline TETRAC YCLINE SUSCEP TIBLE susceptib le Not Available [facility] [address] [place], [address], 07/21/2018 11:00:23 08/23/20 18 08/23/2018 MRI, brain , w/wo contr ast CLINIC AL INDICA TION: Dizzin ess. Rule out acoust ic neurom a versus CVA. PROCED URE: MRI Brain W+W/O Contra st COMPAR ISONS: None. DATE: 2017 3:07 PM TECHNI QUE: Multip lanar, multis equenc e MR evalua tion was perfor med of the brain with and withou t contra st. FINDIN GS: Brain: Scatte red foci of T2/FLA IR hyperi ntensi ty are seen in the subcor tical and perive ntricu lar white matter which are nonspe cific. The ventri cles and sulci are mildly enlarg ed. The basal cister ns are normal . No abnorm al extra- axial fluid collec tions. Mening eal surfac es are normal . Midlin e struct ures are intact . No lesion s are seen in the cerebe llopon marija angles . On diffus ion weight ed imagin g, no region s of restri cted diffus ion to indica te an infarc t. No abnorm al enhanc ement post contra st. Vessel s: Normal vascul ar flow voids are presen t. Parana aram sinuse s and mastoi ds: The parana aram sinuse s are within normal limits . There is a small amount of fluid in the bilate ral mastoi d air cells. Orbits , nasoph arynx, and skull base: Normal . Calvar ium: Normal . IMPRES BELINDA: No acute infarc t or hemorr kumar. No mass or abnorm al enhanc ement. No eviden ce of cerebe llopon marija angle mass or abnorm ality in the inner ear canals . Mild nonspe cific white matter T2 hyperi ntensi ties probab ly sequel a of chroni c microa ngiopa thy. Mild global cerebr al volume loss. I have person ally review ed the images and I agree with this report . WSN: [id number] Dictat ed By: Preeti Hoskins MD Dictat ed Date/T uyen: 3:45 pm Review ed By: Zulma Perez MD Signed By: Zulma Perez MD Signed Date/T uyen: 3:50 pm Transc ribed By: STANFORDB Transc ribed Date/T uyen: 3:36 pm Patien t Class: Outpat ient [facility] (Outpt Imaging) [address] , [place], [address], 09/09/2018 11:57:18 06/06/20 19 06/06/2019 macarena WILD bilzoran eradonald No observ ation record ed. [email or web address] [facility] Diagnosit Imaging Dept [address] [facility], [place], [address], 06/06/2019 15:42:38 Result Notes None recorded. Problems Name Problem SNOMED Code Status Onset Date Resolution Date Notes Provider Name and Address Organization Details Recorded Time Abdomina l pain 90082116 Completed 11/08/2016 Loren Mccurdy MA [facility] 7 15:08:34 Patient status finding [id number] Completed 201205/04/2014 RECORDED 11/05/19 13 3:11PM BY NITA GAITAN MA, BALAJI ON/HARSHA Johnson MD [address], [place], [address], [facility] 6 08:34:21 Backache [id number] Completed 09/29/2016 Elliot Johnson MD [address], [place], [address], [facility] 7 16:13:49 Aphthous ulcer of mouth [id number] Active Elliot Johnson MD [address], [place], [address], [facility] 6 08:34:20 Breathin g painful [id number] Completed 201305/04/2014 IMPRESSI ON: SUSPECT ARTHRITI S BUT GIVEN HER HEMATOLO GIC ISSUES WILL IMAGE TO CONFIRM SUSPCION AND THAT NO EZEQUIEL LESIONS ARE PRESENT. ; RECORDED 10/16/19 14 1:06PM BY NITA GAITAN MA, BALAJI ON/HARSHA Johnson MD [address], [place], [address], [facility] 6 08:34:21 Screenin g for malignan t neoplasm of colon Completed 201205/04/2014 RECORDED 05/14/20 13 9:04AM BY NITA GAITAN MA, YADYATI ON/HARSHA Johnson MD [address], [place], [address], [facility] 6 08:34:21 Constipa tion [id number] Completed 201205/04/2014 RECORDED 05/14/20 13 9:04AM BY NITA GAITAN MA, BALAJI ON/HARSHA Johnson MD [address] [facility] [address], [place], [address], [facility] 6 08:34:20 Single major depressi ve episode Completed 201205/04/2014 RESOLVED DATE: 01/20/20 13; IMPRESSI ON: REACTIVE SECONDAR Y TO HER ' S RECENT PASSING. THERAPIS T CONTACT INFO PROVIDED . WE WILL GENERATE NOTE STATING CONTINUE D PET THERAPY IS APPROPRI ATE WELL.; RECORDED 05/14/20 13 9:04AM BY NITA GAITAN MA, BALAJI ON/HARSHA Johnson MD [address] [facility] [address], [place], [address], [facility] 6 08:34:20 Influenz a vaccine needed [id number] 06 Completed 201205/04/2014 RECORDED 07/04/20 13 4:08PM BY NITA GAITAN MA, NURSE VISIT Elliot Johnson MD [address] [facility] [address], [place], [address], [facility] 6 08:34:21 Pain in limb [id number] Completed 201305/04/2014 IMPRESSI ON: ALOS LIEKLY OA. SEE IF XRAY CONFIRMS . OTC TYLENOL ADVISED. CONSIDER PODIATRY REFERRAL INB/WORS E.; RECORDED 10/16/19 14 1:06PM BY NITA GAITAN MA, ANNOTATI ON/HARSHA Mccurdy MA [facility] 7 15:07:45 Adult health examinat ion Completed 201205/04/2014 IMPRESSI ON: IMMUNIZA TION STATUS UTD WILL SCREEN BASED ON RISK FACTORS. REGULAR DENTAL CARE AND SEATBELT USE ADVISED. DISTRACT ED DRIVING DISCUSSE D. ROUTINE COAL PULVERIZER OPERATOR CARE UTD. DUE FOR COLOSONS COPY THIS YEAR. PT APPEARS COGNITIV SHARONA INTACT WITH EXCEPPEN T FAMILY SUPPORT. MINIMAL FALL RISK.; RECORDED 05/14/20 13 9:04AM BY NITA GAITAN MA, ANNOTATI ON/ADDEN DUM Elliot Johnson MD [address], [place], [address], [facility] 6 08:34:21 Blood in urine [id number] Completed 11/08/2016 Loren ro, [facility] 7 15:08:12 Screenin g for malignan t neoplasm of breast Completed 201305/04/2014 RECORDED 10/16/19 14 1:07PM BY NITA GAITAN MA, ANNOTATI ON/ADDEN DUM Elliot Johnson MD [address], [place], [address], [facility] 6 08:34:21 Renewal of prescrip tion Completed 201205/04/2014 RECORDED 09/26/19 13 10:52AM BY NITA GAITAN MA, YADYATI ON/ADDEN DUM Elliot Johnson MD [address] [facility] [address], [place], [address], [facility] 6 08:34:21 Pain in limb 78943013 Completed 11/08/2016 Loren ro, [facility] 7 15:07:45 Rosacea 657579444 Completed 201305/04/2014 IMPRESSI ON: WILL TRY TOPICAL THERAPY. CONSIDER DERM EVAL IF PERSISTA NT/WORSE .; RECORDED 10/16/19 14 1:06PM BY NITA GAITAN MA, ANNOTATI ON/ADDEN DUM Loren ro, [facility] 7 15:07:39 Candidia sis of mouth 33103411 Completed 201305/04/2014 RECORDED 03/25/20 14 11:02AM BY ELLIOT Stone MD, ANNOTATI ON/ADDEN DUM Elliot Johnson MD [address], [place], [address], [facility] 6 08:34:20 Bilatera l cataract s 43906422 Completed 10/17/2017 Elliot Johnson MD [address], [place], [address], [facility] 8 15:26:00 Osteopen ia 897431605 Active Elliot Johnson MD [address], [place], [address], [facility] 6 08:34:21 Incontin ence of feces 53065236 Completed 11/08/2016 Loren ro, [facility] 7 15:09:00 Increase d frequenc y of urinatio n 844825261 Active Elliot Johnson MD [address], [place], [address], [facility] 6 08:34:21 Body mass index 30+ - obesity 854933400 Active Elliot Johnson MD [address], [place], [address], [facility] 6 08:34:20 Cough 06253625 Completed 12/24/2015 Elliot Johnson MD [address], [place], [address], [facility] 6 08:34:21 Cataract 524954350 Completed 09/29/2016 Removal Reason: surgical ly correcte d Elliot Johnson MD [address], [place], [address], [facility] 7 16:14:16 Pain in right lower limb 771508701 Completed 11/08/2016 Loren ro, [facility] 7 15:08:04 Sciatica 95293882 Completed 11/08/2016 Loren Mccurdy MA jayjay, [facility] 7 15:07:55 Chest pain 16110284 Completed 11/08/2016 Loren Mccurdy MA jayjay, [facility] 7 15:08:08 Hand joint pain 166591350 Completed 11/08/2016 Loren Mccurdy MA jayjay, [facility] 7 15:08:38 Dyspnea on exertion 46446398 Completed 11/08/2016 Loren Mccurdy MA jayjay, [facility] 7 15:08:54 Dysuria 86188071 Completed 09/29/2016 Elliot Johnson MD [address] [facility] [address], [place], [address], [facility] 7 16:15:20 Urinary tract infectio us disease 76164077 Completed 09/29/2016 Elliot Johnson MD [address], [place], [address], [facility] 7 16:15:25 Recurren t urinary tract infectio n 698245706 Completed 11/08/2016 Loren ro, 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 Elliot Johnson MD [address], [place], [address], [facility] 7 21:47:54 Liver cyst 46081678 Active 2016 Elliot Johnson MD [address], [place], [address], [facility] 7 21:48:16 Patient status finding [id number] Completed 201204/07/2014 RECORDED 11/05/19 13 3:11PM BY NITA GAITAN MA, ANNOTATI ON/ADDEN DUM Elliot Johnson MD [address], [place], [address], [facility] 6 08:34:21 Breathin g painful 18817060 Completed 201304/07/2014 IMPRESSI ON: SUSPECT WALLACE Oshea BUT GIVEN HER HEMATOLO GIC ISSUES WILL IMAGE TO CONFIRM SUSPCION AND THAT NO EZEQUIEL LESIONS ARE PRESENT. ; RECORDED 10/16/19 14 1:06PM BY NITA GAITAN MA, YADYATI ON/ADDEN DUM Elliot Johnson MD [address], [place], [address], [facility] 6 08:34:21 Screenin keisha for malignan t neoplasm of colon Completed 201204/07/2014 RECORDED 05/14/20 13 9:04AM BY NITA GAITAN MA, BALAJI ON/ADDEN DUM Elliot Johnson MD [address], [place], [address], [facility] 6 08:34:21 Benign neoplasm of colon 29328997 Active Elliot Johnson MD [address], [place], [address], [facility] 6 08:34:20 Constipa tion 40385830 Completed 201204/07/2014 RECORDED 05/14/20 13 9:04AM BY NITA GAITAN MA, BALAJI ON/ADDEN DUM Elliot Johnson MD [address], [place], [address], [facility] 6 08:34:20 Single major depressi ve episode Completed 201204/07/2014 RESOLVED DATE: 01/20/20 13; IMPRESSI ON: REACTIVE SECONDAR Y TO HER ' S RECENT PASSING. THERAPIS T CONTACT INFO PROVIDED . WE WILL GENERATE NOTE STATING CONTINUE D PET THERAPY IS APPROPRI ATE WELL.; RECORDED 05/14/20 13 9:04AM BY NITA GAITAN MA, BALAJI ON/ADDEN DUM Elliot Johnson MD [address], [place], [address], [facility] 6 08:34:20 Type 2 diabetes mellitus without complica tion 454371506 Active Elliot Johnson MD [address] [facility] [address], [place], [address], [facility] 6 08:34:20 Type 2 diabetes mellitus without complica tion 769003209 Completed 201304/07/2014 IMPRESSI ON: REPORTED LY WELL CONTROLL ED, OVERDUE FOR LABS. WILL HAVE DONE SUDHA. OPTHO EXAM UTD.; RECORDED 12/02/19 14 2:49PM BY NITA GAITAN MA, BALAJI ON/HARSHA Johnson MD [address] [facility] [address], [place], [address], [facility] 6 08:34:20 Influenz a vaccine needed 79211441156 06 Completed 201204/07/2014 RECORDED 07/04/20 13 4:08PM BY NITA GAITAN MA, NURSE VISIT Elliot Johnson MD [address] [facility] [address], [place], [address], [facility] 6 08:34:21 Pain in limb 28140345 Completed 201304/07/2014 IMPRESSI ON: ALOS LIEKLY OA. SEE IF XRAY CONFIRMS . OTC TYLENOL ADVISED. CONSIDER PODIATRY REFERRAL INB/PTARICK E.; RECORDED 10/16/19 14 1:06PM BY NITA GAITAN MA, ANNOTATI ON/HARSHA Mccurdy MA null, [facility] 7 15:07:45 Adult health examinat ion Completed 201204/07/2014 IMPRESSI ON: IMMUNIZA TION STATUS UTD WILL SCREEN BASED ON RISK FACTORS. REGULAR DENTAL CARE AND SEATBELT USE ADVISED. DISTRACT ED DRIVING DISCUSSE D. ROUTINE COAL PULVERIZER OPERATOR CARE UTD. DUE FOR COLOSONS COPY THIS YEAR. PT APPEARS COGNITIV SHARONA INTACT WITH EXCEPPEN T FAMILY SUPPORT. MINIMAL FALL RISK.; RECORDED 05/14/20 13 9:04AM BY NITA GAITAN MA, BALAJI ON/ADDEN DUM Elliot Johnson MD [address], [place], [address], [facility] 6 08:34:21 History of polyp of colon 879437633 Completed 11/08/2016 Loren Mccurdy MA null, [facility] 7 15:08:16 Pure hypercho lesterol emia 139333225 Active Elliot Johnson MD [address], [place], [address], [facility] 6 08:34:20 Essentia l hyperten belinda 42449242 Active Elliot Johnson MD [address], [place], [address], [facility] 6 08:34:20 Essentia l hyperten belinda 16442797 Completed 201304/07/2014 IMPRESSI ON: WELL CONTROLL ED, CONTINUE CURRENT REGIMEN. ; RECORDED 12/02/19 14 2:49PM BY NITA GAITAN MA, BALAJI ON/ADDEN DUM Elliot Johnson MD [address], [place], [address], [facility] 6 08:34:20 Insomnia 303294850 Active Elliot Johnson MD [address], [place], [address], [facility] 6 08:34:20 Left bundle branch block 72954557 Active Neg stress test EF 70% 10/18/14 Elliot Johnson MD [address], [place], [address], [facility] 6 08:34:20 Screenin g for malignan t neoplasm of breast Completed 201304/07/2014 RECORDED 10/16/19 14 1:07PM BY NITA GAITAN MA, ANNOTATI ON/ADDEN DUM Elliot Johnson MD [address] [facility] [address], [place], [address], [facility] 6 08:34:21 Renewal of prescrip tion Completed 201204/07/2014 RECORDED 09/26/19 13 10:52AM BY NITA GAITAN MA, ANNOTATI ON/ADDEN DUM Elliot Johnson MD [address], [place], [address], [facility] 6 08:34:21 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 CONSIDER DERM EVAL IF PERSISTA NT/WORSE .; RECORDED 10/16/19 14 1:06PM BY NITA GAITAN MA, ANNOTATI ON/ADDEN DUM Loren ro, [facility] 7 15:07:39 Dizzines s and giddines s 670006497 Completed 11/08/2016 Loren ro, [facility] 7 15:08:00 Glaucoma 59172600 Active 2017 Elliot Johnson MD [address], [place], [address], [facility] 8 15:26:42 Urinary incontin ence 408400563 Active 2017 Elliot Johnson MD [address], [place], [address], [facility] 8 15:37:51 Dementia 76303140 Active 2017 Elliot Johnson MD [address], [place], [address], [facility] 8 13:17:26 Osteoart hritis of hip 715449722 Active 2017 mild right Elliot Johnson MD [address], [place], [address], [facility] 8 22:34:25 Dizzines s 452555956 Active 2017 Nita Gaitan MA null, [facility] 8 10:59:01 Sensorin eural hearing loss of bilatera l ears 394316731 Active 2018 Elliot Johnson MD [address], [place], [address], [facility] 9 06:40:40 Bilatera l tinnitus 54474333388 02 Active 2018 Elliot Johnson MD [address], [place], [address], [facility] 9 06:40:55 Gastroes ophageal reflux disease 729263783 Active 2018 Elliot Johnson MD [address], [place], [address], [facility] 9 11:04:50 Allergic rhinitis 04088433 Active 2018 Elliot Johnson MD [address], [place], [address], [facility] 9 11:05:16 Problem Notes None recorded. Procedures Surgical History Date Name Laterality Status Provider Name and Address Organization Details Recorded Time 06/06/20 19 Mammogram screening completed Apolonia Wood [facility] 06/06/2019 15:42:58 01/08/20 19 Mini-Cog Test completed Nita Gaitan MA [facility] 01/07/2019 10:54:49 01/08/20 19 Diabetic Foot Exam (Monofilament) completed Nita Gaitan MA [facility] 01/07/2019 10:53:20 04/26/20 18 Hernia repair w/mesh completed Apolonia Wood [facility] 04/30/2018 09:50:57 10/17/19 18 Fall Risk Assessment completed Nita Gaitan MA [facility] 10/17/2017 14:54:42 10/17/19 18 Mini-Cog Test completed Nita Gaitan MA [facility] 10/17/2017 14:54:42 05/01/20 17 Most Recent Bone Density completed Eloise Fernandez [facility] 06/12/2017 14:13:03 05/01/20 17 Dxa bone density study completed Eloise Fernandez [facility] 06/12/2017 14:12:51 10/16/19 17 Most Recent Mammogram completed Nita Gaitan MA [facility] 10/17/2017 14:47:43 09/29/19 17 Fall Risk Assessment completed Nita Gaitan MA [facility] 09/29/2016 15:41:40 09/29/19 17 Mini-Cog Test completed Nita Gaitan MA [facility] 09/29/2016 15:41:51 09/29/19 17 Advanced Care Planning completed Elliot Johnson MD [address] [facility] [address], [place], [address], [facility] 09/29/2016 16:21:27 09/28/19 16 Fall Risk Assessment completed Maite bowens [place] [facility] 09/28/2015 15:50:13 09/28/19 16 Mini-Cog Test completed Maite bowens MA [facility] 09/28/2015 15:56:59 07/23/20 14 Fall Risk Assessment completed Nita Gaitan MA [facility] 07/23/2014 14:50:12 07/23/20 14 Mini-Cog Test completed Nita Gaitan [facility] 07/23/2014 14:50:12 06/04/20 14 completed Nita Gaitan MA [facility] 07/23/2014 14:22:46 06/04/20 14 Date of Last Colonoscopy completed Nita Gaitan [facility] 09/29/2016 15:37:32 06/04/20 14 Colonoscopy completed Maite bowens [facility] 09/28/2015 15:47:18 02/27/20 14 Date of Last Pap Smear completed Nita Gaitan [facility] 07/23/2014 14:22:46 09/24/19 14 Cataract Surgery completed Elliot Johnson MD [address], [address], [facility] 09/29/2016 16:20:16 08/25/20 13 completed Nita Gaitan MA [facility] 07/23/2014 14:22:46 Cholecystectomy completed VIKI Lloyd [address] [address], [place], [address], [facility] 06/01/2014 09:14:34 Tubal Ligation completed VIKI Haney [address], [address], [facility] 06/01/2014 09:14:34 Partial removal of colon completed Elliot Johnson MD [address], [address], [facility] 11/08/2016 15:44:28 Imaging Results Imaging Date Name Status LastModified by Organiz ation Details LastModified Time 08/23/2018 MRI, brain, w/wo contrast completed [facility] [address] , [place], [address], 09/09/2018 11:57:18 06/06/2019 MAMMO, screening, bilateral completed [email or web address] [facility] [address] [place], [address], 06/06/2019 15:42:38 Procedure Notes None recorded. Medical Equipment None Reported. Allergies Allergen ID Allergen Name Allergen Category Reaction Reaction Severity Criticality Documentation Date Start Date Code Code System Note Provider Name and Address Organization Details Recorded Time 28046 acetamino phen / oxycodone medicatio n other Not available Not available 09/28/2015 09918 3 RxNorm agita tion [facility] 6 15:44:18 82427 acetamino phen / hydrocodo ne medicatio n other Not available Not available 09/28/2015 96934 2 [facility] 6 15:44:18 78462 Boniva medicatio n other Not available Not available 09/28/2015 60797 4 RxNorm upset stoma ch XAVI Noble, [facility] 6 15:44:18 4890 Actonel medicatio n nausea Not available Not available 04/07/2014 93030 3 RxNorm VIKI Haney [address] [facility] [address], [place], [address], [facility] 4 20:08:40 4891 propoxyph tian hydrochlo ride medicatio n nausea Not available Not available 04/07/2014 20110 RxNorm Roosevelt Lopez, [place] [address] [facility] [address], [place], [address], [facility] 4 20:08:40 Medications Name Sig Start Date Stop Date Status Note LastModified by Organization Details LastModified Time Prescript ion - Prior Authoriza tion Request 10/17 completed Not Available Not Available Not Available latanopro st 0.005 % eye drops active Not Available Not Available Not Available Procrit 10,000 unit/mL injection solution Take by injectio n route once a month as needed 2013 active Not Available Not Available Not Avai lable pyridoxin e (vitamin B6) ER 200 mg tablet,ex tended release DAILY active RECORDED 04/02/20 14 3:26PM BY NITA GAITAN MA, OFFICE VISIT; Not Available Not Available Not Available oxybutyni n chloride ER 15 mg tablet,ex tended release 24 hr active headache s Not Available Not Available Not Available doxycycli ne hyclate 100 mg capsule 07/31 completed Not Available Not Available Not Available donepezil 5 mg tablet Take 1 tablet every day by oral route. 11/28 completed Not Available Not Available Not Available trazodone 50 mg tablet Take 2 tablets every day by oral route at bedtime for 30 days. 08/22 completed Not Available Not Available Not Available oxybutyni n chloride ER 10 mg tablet,ex tended release 24 hr Take 1 tablet every day by oral route for 30 days. active Not Available Not Available No t Available azithromy caesar 250 mg tablet TAKE 2 TABLETS (500 MG) BY ORAL ROUTE ONCE DAILY FOR 1 DAY THEN 1 TABLET (250 MG) BY ORAL ROUTE ONCE DAILY FOR 4 DAYS active Not Available Not Available No t Available ibuprofen 800 mg tablet Take 1 tablet 3 times a day by oral route with meals for 14 days. active Not Available Not Available No t Available Lidocaine Viscous 2 % mucosal solution active Not Available Not Available Not Available ofloxacin 0.3 % eye drops active Not Available Not Available Not Available donepezil 10 mg tablet Take 1 tablet every day by oral route. 12/17 completed Not Available Not Available Not Available metformin 850 mg tablet TAKE 1 TABLET BY MOUTH TWICE A DAY active Not Available Not Available No t Available cyanocoba roma (vit B-12) 1,000 mcg tablet Take 1 tablet every day by oral route as directed . 2017 active Not Available Not Available Not Avai lable valsartan 80 mg tablet TAKE 1 TABLET BY MOUTH EVERY DAY 2018 active Not Available Not Available Not Avai lable acetamino phen 300 mg-codein e 30 mg tablet Take 1 tablet every 6 hours by oral route as directed for 10 days. active Not Available Not Available No t Available ciproflox acin 250 mg tablet Take 1 tablet every 12 hours by oral route as directed for 5 days. active Not Available Not Available No t Available ciproflox acin 500 mg tablet Take 1 tablet every 12 hours by oral route as directed for 7 days. 01/07 completed Not Available Not Available Not Available sulfameth oxazole 800 mg-trimet hoprim 160 mg tablet Take 1 tablet every 12 hours by oral route for 7 days. 08/08 completed Not Available Not Available Not Available lovastati n 10 mg tablet TAKE 1 TABLET BY MOUTH EVERY DAY active Not Available Not Available No t Available aspirin 81 mg tablet,de layed release TAKE 1 TABLET BY MOUTH DAILY 04/23 completed bruising Not Available Not Available Not Available tramadol 50 mg tablet Take 1 tablet every 6 hours by oral route as needed for 5 days. active Not Available Not Available No t Available Tessalon Perles 100 mg capsule Take 1 capsule 3 times a day by oral route as directed for 10 days. 2015 active Not Available Not Available Not Avai lable hydromorp missy 2 mg tablet Take 2 tablets every 4 hours by oral route as needed. 07/09 completed Not Available Not Available Not Available trazodone 100 mg tablet TAKE 1 TABLET BY MOUTH EVERY DAY AT BEDTIME NEEDED active Not Available Not Available No t Available Valium 5 mg tablet 10/17 completed Not Available Not Available Not Available timolol maleate 0.25 % eye drops Instill 1 drop twice a day by ophthalm ic route for 29 days. 11/08 completed Not Available Not Available Not Available erythromy caesar 5 mg/gram (0.5 %) eye ointment APPLY 1 CM RIBBON INTO THE LOWER CONJUNCT IVAL SAC(S) IN THE AFFECTED EYE(S) BY OPHTHALM IC ROUTE 3 TIMES PER DAY active Not Available Not Available No t Available oseltamiv ir 75 mg capsule 12/17 completed Not Available Not Available Not Available metronida zole 0.75 % topical cream Apply TWO TIMES DAILY as needed 07/31 completed Not Available Not Available Not Available brimonidi ne 0.2 % eye drops active Not Available Not Available No t Available hydrochlo rothiazid e 12.5 mg capsule TAKE 1 CAPSULE BY MOUTH EVERY DAY active Not Available Not Available No t Available docusate sodium 100 mg capsule TAKE ONE CAPSULE BY MOUTH TWICE A DAY NEEDED 09/29 completed Not Available Not Available Not Available omeprazol e 20 mg capsule,d elayed release TAKE 1 CAPSULE BY MOUTH EVERY DAY active Not Available Not Available No t Available Tylenol 325 mg tablet Take 2 tablets 4 times a day by oral route as needed. 2017 active Not Available Not Available Not Avai lable codeine 10 mg-guaife nesin 100 mg/5 mL oral liquid Take 10 mL every 4 hours by oral route as directed for 5 days. 2018 active Not Available Not Available Not Avai lable gabapenti n 100 mg capsule TAKE 1 CAPSULE BY MOUTH EVERY DAY active Not Available Not Available No t Available levofloxa caesar 500 mg tablet active Not Available Not Available No t Available lovastati n 20 mg tablet Take 1 tablet every day by oral route for 30 days. active Not Available Not Available No t Available timolol maleate 0.5 % eye drops Apply 1 drop twice a day by ophthalm ic route as directed for 25 days. active Not Available Not Available No t Available fluticaso ne propionat e 50 mcg/actua tion nasal spray,beatriz pension USE 2 SPRAYS IN EACH NOSTRIL ONCE A DAY active Not Available Not Available No t Available loratadin e 10 mg tablet TAKE 1 TABLET BY MOUTH EVERY DAY 2017 active Not Available Not Available Not Avai lable Lotemax 0.5 % eye drops,beatriz pension active Not Available Not Available Not Available Estrace 0.01% (0.1 mg/gram) vaginal cream 07/31 completed Not Available Not Available Not Available valsartan 40 mg tablet Take 1 tablet every day by oral route for 30 days. active Not Available Not Available No t Available Readi-Cat 2 2.1 % (w/v), 2.0 % (w/w) oral suspensio n Take 450 mL twice a day by oral route as directed for 1 day. 11/16 completed Not Available Not Available Not Available Procrit 40,000 once monthly as needed, hold if HGB <11 active Not Available Not Available No t Available Tamiflu as directed for 3 days 12/17 completed Not Available Not Available Not Available FreeStyle Lancets TWO TIMES DAILY, NEEDED 2012 active RECORDED 06/30/20 13 5:06PM BY ELLIOT Stone MD, ANNOTATI ON/ADDEN DUM;DX: 250.00 Not Available Not Available Not Available calcium 600 mg (as carbonate )-vitamin D3 10 mcg (400 unit) tablet TAKE 1 TABLET BY MOUTH EVERY DAY active Not Available Not Available No t Available peg 3350-elec trolytes 236 gram-22.7 4 gram-6.74 gram-5.86 gram solution active Not Available Not Available Not Available FreeStyle Lite Strips TWO TIMES DAILY, NEEDED 2012 active RECORDED 06/30/20 13 5:06PM BY ELLIOT Stone MD, ANNOTATI ON/ADDEN DUM;DX: 250.00 Not Available Not Available Not Available Elastic Wrist Splint Support DAILY 10/26 completed RECORDED 11/04/19 13 2:52PM BY ELLIOT Stone MD, MEDICATI ON AUTO-YOGI CTIVATIO N;DX: OSTEOART HRITIS/T ENDONITI S Not Available Not Available Not Available Durezol 0.05 % eye drops active Not Available Not Available No t Available Robitussi n take as directed 12/17 completed Not Available Not Available Not Available B12 injectio n monthly active Not Available Not Available No t Available Prolia 60 mg/mL subcutane ous syringe Inject 1 mL EVERY 6 MONTHS by subcutan eous route. active Not Available Not Available No t Available Ilevro 0.3 % eye drops,beatriz pension active Not Available Not Available Not Available Vitals Date Recorded Body height Body mass index (BMI) Body weight Heart rate Body temperature Oxygen saturation Oxygen saturation in Arterial blood by Pulse oximetry Systolic blood pressure Diastolic blood pressure Provider Name and Address Organization Details Last Updated DateTime 8 149.86 cm 31.1 kg/m2 14705.2 2 g 70 /min 97.1 [degF] 98 % 98 % 115 mm[Hg] 57 mm[Hg] Nita Gaitan MA [facility] 8 10:14:13 Date Recorded Body height Body mass index (BMI) Body weight Heart rate Oxygen saturation Oxygen saturation in Arterial blood by Pulse oximetry Body temperature Systolic blood pressure Diastolic blood pressure Provider Name and Address Organization Details Last Updated DateTime 8 149.86 cm 30.9 kg/m2 04314.6 3 g 70 /min 98 % 98 % 96.8 [degF] 110 mm[Hg] 70 mm[Hg] Nita Gaitan MA [facility] 8 11:03:51 Date Recorded Body height Body temperature Oxygen saturation Oxygen saturation in Arterial blood by Pulse oximetry Heart rate Body mass index (BMI) Body weight Systolic blood pressure Diastolic blood pressure Provider Name and Address Organization Details Last Updated DateTime 9 149.86 cm 98 [degF] 97 % 97 % 86 /min 29.7 kg/m2 59757.7 8 g 113 mm[Hg] 70 mm[Hg] Elyssa Garcia MA [facility] 9 08:24:57 Date Recorded Body height Body mass index (BMI) Body weight Heart rate Oxygen saturation Oxygen saturation in Arterial blood by Pulse oximetry Body temperature Systolic blood pressure Diastolic blood pressure Provider Name and Address Organization Details Last Updated DateTime 9 149.86 cm 30.1 kg/m2 85223.2 6 g 72 /min 99 % 99 % 97.5 [degF] 139 mm[Hg] 75 mm[Hg] Nita Gaitan MA [facility] 9 10:56:04 Social History Question Answer Notes LastModified by Organizat ion Details LastModified Time Tobacco Smoking Status Never Smoker Not Available [employer] 07/27/2020 03:36:38 Do You Have An Advance Directive? Yes LAWSON/ Irlanda Brown [id number] Information not available 07/27/2020 What Is Your Level Of Alcohol Consumption? None [id number] Information not available 07/27/2020 Is Blood Transfusion Acceptable In An Emergency? Yes [id number] Information not available 07/27/2020 What Is Your Level Of Caffeine Consumption? Moderate 1 Servings Of Coffee Daily [id number] Information not available 07/27/2020 How Much Tobacco Do You Chew? None [id number] Information not available 07/27/2020 Are You Currently Employed? No Retired [id number] Information not available 07/27/2020 What Type Of Diet Are You Following? SPECIFIC Low Salt/low Sugar, 1% Milk [id number] Information not available 07/27/2020 Which Illicit Or Recreational Drugs Have You Used? 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 Alone [email or web address] Information not available 06/01/2014 Do You Take Precautions To Prevent Distracted Driving? Yes Granddaughter Drives Most Of The Time Information not available 09/28/2015 How Often Do You Need To Have Someone Help You When You Read Instructions, Pamphlets, Or Other Written Material From Your Doctor Or Pharmacy? Always Due To Language Barrier Information not available 09/28/2015 Have You Served In The ? No Information not available 09/29/2016 Marital Status [email or web address] Informatio n not available 07/23/2014 What Was The Date Of Your Most Recent Tobacco Screening? 01/07/2019 [id number] Information not available 07/27/2020 How Many Children Do You Have? 6 [id number] Information not available 07/27/2020 Difficulty Reading? No Information not available 07/23/2014 Seat Belts Used Routinely Yes Information not available 07/23/2014 Are You Sexually Active? No [id number] Information not available 07/27/2020 Smoke Alarm In Home Yes Information not available 09/28/2015 At What Age Did You Start Smoking Tobacco? 1 [id number] Information not available 07/27/2020 Are You Passively Exposed To Smoke? No Information not available 07/23/2014 How Much Tobacco Do You Smoke? No [id number] Information not available 07/27/2020 Do You Use Sunscreen Routinely? Yes [id number] Information not available 07/27/2020 How Many Years Have You Smoked Tobacco? 0 [id number] Information not available 07/27/2020 Difficulty Watching TV? No Information not available 07/23/2014 Sex: Unknown Functional Status Question Answer Note LastModified by Organizat ion Details LastModified Time Do you have difficulty walking or climbing stairs? No [id number] Information not available 07/27/2020 Do you have difficulty doing errands alone? Yes [id number] Information not available 07/27/2020 Are you able to care for yourself? Yes [id number] Information not available 07/27/2020 Do you have difficulty dressing or bathing? Yes [id number] Information not available 07/27/2020 What is your exercise level? None walking during the summer [id number] Information not available 07/27/2020 Mental Status None recorded. Family History Relationship Description Onset Age of this Age Resolved Age Notes LastModified by Organization Details LastModified Time Father Asthma abolcun Not available 12:53:22 Paternal Grandmother Malignant neoplastic disease leukem ia abolcun Not available 03/16/2016 12:53:22 Medical History Condition Response Diabetes Y Hypertension Y Osteoporosis Y High Cholesterol Y Gynecological History Statement/Question Response Date of Last Colonoscopy 06/04/2014 08/25/2013 Most Recent Bone Density 05/01/2017 Menses Monthly N Date of Last Pap Smear 02/26/2014 Most Recent Mammogram 10/16/2016 06/04/2014 Obstetrics History GPAL:G 0 P 0 0 0 0 Immunizations Vaccine Type Date Status Note Provider Nam e and Address Organization Details Recorded Time Influenza, split virus, quadrivalent, PF 5 completed Not Available [facility] 10/11/2019 02:22:02 Influenza, high-dose, trivalent, PF 6 completed Not Available [facility] 10/11/2019 02:22:03 Influenza, high-dose, trivalent, PF 7 completed Not Available [facility] 10/11/2019 02:22:21 Influenza, high-dose, trivalent, PF 8 completed Not Available [facility] 10/11/2019 02:22:14 pneumococcal polysaccharide PPV23 8 completed Not Available [facility] 04/07/2014 13:49:04 Td (adult), 2 Lf tetanus toxoid, preservative free, adsorbed 2 completed Not Available [facility] 04/07/2014 13:49:04 Influenza, split virus, trivalent, preservative 2 completed Not Available [facility] 04/07/2014 13:49:04 Influenza, split virus, trivalent, preservative 3 completed Not Available [facility] 04/07/2014 13:49:04 Influenza, split virus, trivalent, PF 4 completed Not Available [facility] 10/11/2019 02:21:57 Pneumococcal conjugate PCV 13 4 completed Not Available [facility] 10/11/2019 02:21:37 Past Encounters Encounter ID Performer Location Encounter Start Date Encounter Closed Date Diagnosis/Indication Diagnosis SNOMED-CT Code Diagnosis ICD10 Code Diagnosis Note [id number] [facility] [address] [facility] [place] [address] 06/19/2012 00:00:00 [id number] [facility] [address] [facility] [place] [address] 09/26/2012 00:00:00 [id number] [facility] [address] [facility] [place] [address] 01/10/2013 00:00:00 [id number] [facility] [address] [facility] [place] [address] 05/14/2013 00:00:00 [id number] [facility] [address] [facility] [place] [address] 10/16/2013 00:00:00 [id number] [facility] [address] [facility] [place] [address] 12/01/2013 00:00:00 [id number] [facility] [address] [facility] [place] [address] 03/10/2014 00:00:00 [id number] [facility] [address] [facility] [place], [place] [address] 03/16/2014 00:00:00 [id number] [facility] [address] [facility] [place], [place] [address] 03/25/2014 00:00:00 [id number] [facility] [address] [facility] [place], [place] [address] 04/02/2014 00:00:00 [id number] Timur Cameron MD Main Office [address] [facility] [address] [place], [place] [address] 06/01/2014 08:41:54 06/01/2014 09:25:10 Pre-surgery evaluation 080817184 Bilateral cataracts 53588800 Essential hypertension 36013593 Myelodyspl astic syndrome (clinical) 733723805 [id number] Elliot Johnson MD Main Office [address] [place] [address] [place], [place] [address] 07/23/2014 14:34:09 07/23/2014 15:43:04 Adult health examination 365698628 Will update immunizati on status and screen based on risk factors. Regular dental and optho care advised as well as sunscreen and seatbelt use. Breast, colon and cervical cancer screening are utd. Pt currently demonstrat es low riks for falls and no significan t cognitive decline. Advance directives in place. Needs infl uenza immunization 944018210 Incontinence of feces 74495748 Secondary to previous colectomy. Symptoms already reviewed with GI. Administra tion of pneumococcal vaccine 58233513 Essential hypertension 39871070 Type 2 aleshia betes mellitus without complication 511262300 Pure hypercholesterolemia 919703714 Insomnia 672744962 Increased frequency of urination 715828044 Osteopenia 357390340 Myelodyspl astic syndrome (clinical) 803251963 Body mass index 30+ - obesity 476155055 [id number] Elliot Johnson MD Main Office [address] [facility] [address] [place], [place] [address] 08/26/2014 11:01:39 08/26/2014 11:41:14 Pre-surgery evaluation 336663521 Patient is cleared for cataract surgery. Patient having left cataract surgery 09/03/[address] Tobin. Had EKG done in May, which was unchanged from her EKG in 2011, I called Dr. Tobin' s office, if within 6 months no need to repeat and she denies chest pain sx. Pre-surgery testing 386596745 Cough 57876299 Cough, congestion x 2 weeks with intermiten t fever, taking delsym without relief. She does have exp wheezing and rhonchi on exam. Will get CXR today, start z na today and tessalon perles as prescribed for cough. If sx persist or do not imrpove, please notify Dr. Tobin' s office. Cataract [id number] Elliot Johnson MD Main Office [address] [address] 09/23/2014 13:55:08 09/23/2014 15:07:54 Essential hypertension 45587739 Better on recheck. Will continue current regimen. Type 2 aleshia betes mellitus without complication 615303729 Pure hypercholesterolemia 825150085 Was off of meds preop cataract surgery. Will continue current dose and reassess after consistent compliance . Incontinence of feces 03858722 Secondary to previous colectomy. Symptoms already reviewed with GI. Will resend DME order as was not received by pharmacy. [id number] Elliot Johnson MD Main Office [address] [address] 10/15/2014 11:00:22 10/15/2014 12:00:04 Pain in right lower limb 152276002 With radicular symptoms- likely sciatic nerve pain. Muscle relaxer, pain medication and anti-infla mmatory as prescribed . Please be cautious when getting up, these medication s may cause sedation. Heat or ice to affected area 4 times daily x 20 minutes at a time. Rest, sciatic exercises as tolerated after med kicks in. She would like to hold off on PT for now as her granddaugh ter would have to drive her, if sx don't improve she will call for referral. Discussed side effects of opiates. Caution driving, careful for falls, fiber supplement if constipati on. Patient understand s. Sciatica 54580308 Essential hypertension 32803624 Osteoarthritis 344863119 Type 2 aleshia betes mellitus without complication 098224263 [id number] Loren Mccurdy MA Main Office [address] [facility] [address] [place] [address] 11/10/2014 09:52:04 11/10/2014 10:20:30 Pain in right lower limb 017901751 Right lower leg pain since seen here for sciatica on 10/15, + lump to leg, will get XR today. Tylenol/ ibuprofen as needed for pain. Chest pain 18827674 Reso lved, negative cardiac work-up. Follow-up encounter 821693457 Essential hypertension 42442504 Myelodyspl astic syndrome (clinical) 189498318 Type 2 aleshia betes mellitus without complication 827268005 [id number] Main Office [address] [facility] [address] [place] [address] 01/25/2015 14:22:59 01/25/2015 15:07:00 Type 2 diabetes mellitus without complication 612852767 Will reassess control and continue current regimen if A1C < 7.5. Pure hypercholesterolemia 104802810 Will reassess off of meds. Contineu current dose if LDL <100. Hand joint pain 300564634 likely Dequarvain s vs OA. Not interested in injection, will try splint and call inb/worse. Essential hypertension 03693432 Well controlled , continue current regimen. [id number] Main Office [address] [facility] [address] [place] [address] 05/28/2015 14:15:35 05/28/2015 15:25:58 Pure hypercholesterolemia 456929670 LDL not at goal. Will titrate statin dose to goal LDL level <100. Essential hypertension 74750481 Well controlled , continue current regimen. Type 2 aleshia betes mellitus without complication 543286550 Will reassess control and continue current regimen if A1C < 7.5. Needs infl uenza immunization 225743404 Dyspnea on exertion 84448884 Has LBBB with normal stress testing in 2007 now with exertional symptoms and significan t risk factors. Will reassess. Advised urgent evaluation if pain worsens/do es not darlene. Insomnia 219794207 [id number] Randall fleming Main Office [address] [facility] [address] [place] [address] 09/28/2015 15:18:41 09/28/2015 16:58:32 Adult health examination 607984457 Z00.00 G0439 At [facility] ed risk for falls 819122357 Z91.81 Pure hypercholesterolemia 081253886 E78.0 Will recheck labs in October. Essential hypertension 72239407 I10 Well controlled , continue current regimen. Type 2 aleshia betes mellitus without complication 457478573 E11.9 Will reassess control and continue current regimen if A1C < 7.5. Insomnia 835810227 G47.0 0 Cough 52114379 R05 Cold sx x 3 weeks now with nightsweat s and chills, back pain, leg pain, will get CXR to r/o PNA. Lots of fluids. Dysuria 63670814 R30.0 C/o foul smelling urine. Urine dip was not fully reported, will await UA and culture results. Myelodyspl astic syndrome (clinical) 520489448 D46.9 Stable. Screening for malignant neoplasm of cervix 744991477 Z12.4 Backache 253869166 M54.9 Will give short term rx ofr valium for muscle relaxer, no driving/ alcohol with med, reminded to get up slowly, use cane / walker as needed. [id number] Oswald Storey MD Main Office [address] [facility] [address] [place] [address] 10/26/2015 13:49:54 10/26/2015 14:47:14 Dysuria 20987723 R30.0 Had uti and was treated with cipro in early september, c/o sx again, will send urine culture. Cough 86703282 R05 Cough x 10 days, Will treat for possible bacterial infection, (also has UTI, will use bactrim) Symptomati c treatment- lots of fluids, rest, tea with honey, OTC cough drops/ cough med as needed, humidifier as needed. Tylenol or iburpofen as needed for fever/ pain. If sx worsen please return/ go to ED. Patient was in [place] 10[place]14-10[place]19 and did have 1 mosquito bite, zika virus is certainly a small possibilit y though not likely. She has had the cough for 10 days and was in [place] about 1 [place] ago- (incubatio n unknown but thought to be a few days to 1 week) I explained to Nicole that there is no treatment (except symptomati c treatment) for the virus and there is no testing at this time. She has not had fever, joint pain though she does have some other sx. Should her symptoms worsen please go to ED or return to office. Recurrent urinary tract infection 865924105 N39.0 UTI in September as well, treated with cipro, patient states she has symptoms frequently but only comes to MD when she feels sx do not resolve on their own, will refer to urology for further eval/ Conjunctivitis 0493784 H 10.9 Right eye, prefers ointment, use as directed x 5-7 days, warm compresses and wipe away crusting. Osteoporosis 60476115 M8 1.0 [id number] Elliot Johnson MD Main Office [address] [place] [address] 12/24/2015 09:43:08 12/24/2015 10:23:07 Chest pain 96040438 R07.9 Somewhat atypical for cardiac pain but angina and PE are both on differenti al. Her LBBB mitigates utility of ECG today so will start evaluation with labs and CXR. If d-dimer elevated will need PE rule out. If no evidence for PE will need further cardiac eval. If trop elevated will refer to ED. Pt and her grandaught er advised that if pain recurs/per sists to go to ED for urgent evaluation . If labs not suggestive of acute cardiac issue will refer to cards to consider cath. Chest wall pain also in differenti al but need to rule out more potentiall y acute/life threatenin g issues first sharath in light of her risk factors. Left bundl e branch block 39649005 I44.7 Essential hypertension 75917029 I10 Poor control. Will titrate ARB dose and reassess next week. [id number] Elliot Johnson MD Main Office [address] [place] [address] 12/31/2015 11:40:43 12/31/2015 12:14:45 Essential hypertension 47896597 I10 Well controlled on higher ARB dose. Will continue. Chest pain 74882727 R07. 9 Improved likely musculoske letal. Advised to let me know if it persists or becomes exertional . Rosacea 624296819 L71.9 Will resume previously well tolerated and effective treatment. [id number] Elliot Johnson MD Main Office [address] [facility] [address] [place] [address] 02/16/2016 13:30:37 02/16/2016 14:16:45 Emani 347311007 L71.9 Essential hypertension 58973458 I10 Type 2 aleshia betes mellitus without complication 800851052 E11.9 Well controlled , continue current regimen. Pure hypercholesterolemia 968015302 E78.0 LDL at goal. Continue current regimen. Dyspnea on exertion 6084 5006 R06.09 Has LBBB with normal stress testing in 2007 now with exertional correlatio n and significan t risk factors. Will ask cardiology whether further evaluation is warranted. Check PFT's to screen for possible pulmonary etiology. [id number] Elliot Johnson MD Main Office [address] [facility] [address] [place] [address] 03/16/2016 12:42:57 03/16/2016 13:20:04 Abdominal pain 39002045 R10.12 Given reported history as well as surgical history will start eval with u/s to rule out abdominal wall hernia. If unremarkab le would consider UGI to look for hiatal hernia which could explain intermitte nt back/abd pain and even cough. [id number] Elliot Johnson MD Main Office [address] [facility] [address] [place] [address] 07/31/2016 14:44:47 07/31/2016 15:34:30 Type 2 diabetes mellitus without complication 438543543 E11.9 Well controlled , continue current regimen. Essential hypertension 83475510 I10 Well controlled , continue current regimen. Influenza vaccine needed 8078964897 106 Z23 Pain in right knee 47149 75543 50023 M25.561 Suspect soft tissue injury collateral ligament vs meniscal. If Xray unremarkab le and pain persists refer for PT and ortho eval. [id number] Elliot Johnson MD Main Office [address] [facility] [address] [place] [address] 09/29/2016 15:21:21 09/29/2016 16:35:51 Adult health examination 726930676 Z00.01 Will update immunizati on status and screen based on risk factors. Shingles vaccine advised via local pharmacy. Regular dental and ophtho care advised as well as sunscreen and seat belt use. Breast, colon and cervical cancer screening are utd. Pt currently demonstrat es low risk for falls and no significan t cognitive decline. Advance directives in place. Hernia of anterior abdominal wall 641075146 K43.9 Advance di rective discussed with patient 652927679 Z71.89 Body mass index 30+ - obesity 021383239 Z68.30 Type 2 aleshia betes mellitus without complication 749073174 E11.9 Well controlled , continue current regimen. Recheck labs in 3-4 months. Myelodyspl astic syndrome (clinical) 637823078 D46.9 Stable, followed by hematology . Pure hypercholesterolemia 061059033 E78.01 LDL at goal, will continue current statin dose. Essential hypertension 50468106 I10 Not at goal. Will resume previously tolerated diuretic dose. Left upper quadrant pain 094392837 R10.12 Intermitte nt issue, not active today. Sounds like muscle spasm. Adequate hydration advised. Consider CT scan if worse, but needs evaluation when active. [id number] Elliot Johnson MD Main Office [address] [facility] [address] [facility] [place] [address] 11/08/2016 15:03:15 11/08/2016 15:55:16 Essential hypertension 39994743 I10 Well controlled /at goal. Continue current regimen. Hernia of anterior abdominal wall 846799454 K43.9 U/S described fatty ventral hernia. Will reassess with CT. Left sided abdominal pain 280801181 R10.9 See if new hernia or other findings have evolved to explain her pain. [id number] Elliot Johnson MD Main Office [address] [facility] [address] [facility] [place] [address] 12/21/2016 13:28:09 12/21/2016 14:30:56 Essential hypertension 72521994 I10 Well controlled /at goal. Continue current regimen. Type 2 aleshia betes mellitus without complication 954405395 E11.9 Well controlled , continue current regimen. Recheck labs in 3-4 months. Thoracic back pain 86233 8004 M54.6 ? related to back radiculopa thy. Will try gabapentin and check imaging. Titrate dose as tolerated to goal pain control. Refer to pain mgmt of persistent /worse. Ecchymosis 177836388 R58 Likely relate to her MDS and asa. Will consider stopping asa if persistent /worse. [id number] Randall Ashli fleming Main Office [address] [facility] [address] [address] 01/26/2017 10:58:35 01/26/2017 11:33:34 Easy bruising 463020682 R58 Superficia l bruising to back and thigh, bruise is located yogi different area then where she describes the sharp pain which has resolved. Will check blood work today. She has an appt on Sunday for her procrit injection. Monitor for other bruising, bleeding gums, blood in stools, nose bleeds, chest pain, SOB, fatigue or other symptoms. Myelodyspl astic syndrome (clinical) 192531184 D46.9 Stable. Type 2 aleshia betes mellitus without complication 574155549 E11.9 Will reassess control and continue current regimen if A1C < 7.5. Essential hypertension 92984448 I10 [id number] Elliot Johnson MD Main Office [address] [address] [place] [address] 04/23/2017 15:13:24 04/23/2017 15:50:04 Type 2 diabetes mellitus without complication 973105950 E11.9 Well controlled , continue current regimen. Essential hypertension 33323621 I10 Well controlled /at goal. Continue current regimen. Abdominal pain 75381083 R10.12 No hernia present on imaging but symptoms are consistent . Will see if hernia belt helps. Call if persistent /worse. [id number] Elliot Johnson MD Main Office [address] [address] [place] [address] 06/22/2017 14:53:08 06/22/2017 16:00:03 Hiatal hernia 43525907 K44.9 Abdominal pain 90613326 R10.9 paln was for next step to see general surgery, referral given, we will schedule this for her. Muscle spa sm of cervical muscle of neck 0936042157 04 M62.838 Right sided, heat 4 times daily, stretches as tolerated, diazepam as needed. Influenza vaccine needed [id number] 106 Z23 [id number] Elliot Johnson MD Main Office [address] [address] [place] [address] 10/17/2017 14:29:40 10/17/2017 15:46:41 Adult health examination 207411600 Z00.00 Immunizati on status utd, will screen based on risk factors. Shingles vaccine advised via local pharmacy. Regular dental and ophtho care advised as well as sunscreen and seat belt use. Breast, colon and cervical cancer screening are utd. Pt currently demonstrat es low risk for falls and no significan t cognitive decline. Advance directives in place. Poor short -term memory 529227970 R41.3 Pt and grndtr are concerned regarding her short term memory issues. Will start donazepil and titrate as tolerated. Hernia of anterior abdominal wall 041210203 K43.9 Pt is requesting second opinion. Type 2 aleshia betes mellitus without complication 407761979 E11.9 Well controlled , continue current regimen. Myelodyspl astic syndrome (clinical) 469684576 D46.9 Stable, followed by hematology . Body mass index 30+ - obesity 795501275 Z68.32 Essential hypertension 58566091 I10 Elevated today. If >130/90 at f/u will increase diuretic dose. Pure hypercholesterolemia 227763517 E78.01 LDL previosuly at goal, will continue current statin dose. Obesity 285695555 E66.9 Osteopenia 594172411 M85 .80 Adequate dietary calcium and vitamin D intake advised as well as regular weight bearing exercise. [id number] Elliot Johnson MD Main Office [address] [facility] [address] [facility] [place] [address] 11/28/2017 12:39:12 11/28/2017 13:25:23 Essential hypertension 42631727 I10 Well controlled today. Will continue current regimen. Urinary incontinence 165 339089 R32 Will reassess urine following uti treatment. Type 2 aleshia betes mellitus without complication 474035670 E11.9 Well controlled , continue current regimen. Dementia 78758584 F03.90 Will titrate dose as tolerated. Refer for neuropsych testing and MRI if worsening. Pyuria 7264972 N39.0 Reassess after treatment which was instituted for supsiociou s UA and symptoms. [id number] Elliot Johnson MD Main Office [address] [facility] [address] [facility] [place] [address] 04/04/2018 13:21:40 04/04/2018 14:20:28 Type 2 diabetes mellitus without complication 492848489 E11.9 Well controlled , continue current regimen. Essential hypertension 94545588 I10 Well controlled today. Will continue current regimen. Hip pain 81890721 M25.55 2 Suspect IT band. Will image to rule out OA and try veronica PT. If not relief will need formal PT and PMR eval. To ortho is significan t OA is present. Osteoarthritis 780371222 M19.90 Requesting walker for improved mobility. Pt requires seat to rest for longer distances secondary to diffuse lower extremity OA. Hernia of anterior abdominal wall 695970998 K43.9 Surgery scheduled on 04/26. Preop clearance happening via [facility]. [id number] Elliot Johnson MD Main Office [address] [facility] [address] [place] [address] 04/29/2018 10:42:29 04/29/2018 14:13:40 [id number] Elliot Johnson MD Main Office [address] [facility] [address] [place] [address] 07/09/2018 10:00:23 07/09/2018 10:54:19 Essential hypertension 99903690 I10 Well controlled today. Will continue current regimen. Hernia of anterior abdominal wall 137947979 K43.9 Well healed but still having her chronic upper abdominal pain. Type 2 aleshia betes mellitus without complication 679965859 E11.9 Well controlled , continue current regimen. Influenza vaccine needed 0598184444 106 Z23 Dizziness 453193740 R42 Will decrease ARB dose and see if dizziness improves. Upper abdominal pain 831 70782 R10.10 ? GERD vs functional abdominal pain. Bilateral hearing loss 42043918 H91.93 Lost her hearing aids and requesting new assessment . [id number] Elliot Johnson MD Main Office [address] [facility] [address] [place] [address] 08/08/2018 10:49:24 08/08/2018 11:35:45 Dizziness 552765309 R42 Will d/c ARB dose and image to rule out CVA/inner ear disease. Consider cardiology vs neurology referals depending on testing results/sy mptom progressio n. Left upper quadrant pain 212067709 R10.12 Continue PPI. Consider GI eval if persistent /worse. Urinary tr act infectious disease 34582472 N39.0 Will verify tx success. Upper abdominal pain 831 02800 R10.10 ? GERD vs functional abdominal pain. [id number] Elliot Johnson MD Main Office [address] [place] [address] 12/04/2018 09:37:37 12/04/2018 10:31:52 [id number] VIKI Haney Main Office [address] [place] [address] 12/17/2018 08:15:01 12/17/2018 09:21:15 Influenza caused by Influenza A virus 086199860 J09.X2 Took tamiflu x 5 days, cough continues, no fever, chills. Urinary tr act infectious disease 05076965 N39.0 tested positive for UTI- culture was growing klebsiella but she was asx so not treated. she became symptomati c so will tx. Cough 73513798 R05 cough continues, likely post viral, she did get rx for robitussin with codeine which she felt was helpful, will refill [id number] Justine Dewitt Main Office [address] [place] [address] 01/07/2019 10:16:04 01/07/2019 11:26:39 Adult health examination 983603715 Z00.00 Immunizati on status utd, will screen based on risk factors. Shingrix advised via local pharmacy. Regular dental and ophtho care advised as well as sunscreen and seat belt use. Breast, colon and cervical cancer screening are utd. Pt currently demonstrat es low risk for falls and no significan t cognitive decline. Advance directives in place. Varicella vaccination 68 788712 Z23 Screening for malignant neoplasm of breast 268549274 Z12.39 Screening for malignant neoplasm of colon 900146811 Z12.11 Due for f/u in May. WIll refer to new GI with Dr. Navarrete's skilled nursing . Type 2 aleshia betes mellitus without complication 395716402 E11.9 Well controlled , continue current regimen. Myelodyspl astic syndrome (clinical) 411352621 D46.9 Stable, followed by hematology . At moderat e risk for fall 3901896378 23124791 Z91.89 pt declines PT referral but will Poor short -term memory 273913662 R41.3 Pt and grndtr are concerned regarding her short term memory issues. Will start donazepil and titrate as tolerated. Body mass index 30+ - obesity 003413488 Z68.30 Essential hypertension 80772841 I10 Elevated today. If >130/90 at f/u will increase diuretic dose. Pure hypercholesterolemia 462462285 E78.01 LDL previosuly at goal, will continue current statin dose. Obesity 561432856 E66.9 Osteopenia 547463638 M85 .80 Adequate dietary calcium and vitamin D intake advised as well as regular weight bearing exercise. Due for BND in the Fall. Health Concerns Section Related Observation LastModified by Organization Detai ls LastModified Time None Recorded Concern Status LastModified by Organization Details LastModified Time None Recorded Advance Directives Directive Y: HCP/ Irlanda Moran da Payers Encounter Date Sequence Insurance Name Policy Number Policy Rhodes Covered Member ID Rhodes Member ID Guarantor Name 07/09/2018 1 [place] [employer] Nicole Gus [id number] Nicole Gus 08/08/2018 1 [place] [employer] Nicole Gus [id number] Nicole Gus 12/04/2018 1 [place] [employer] Nicole Gus [id number] Nicole Gus 12/17/2018 1 [place] [employer] Nicole Gus [id number] Nicole Gus 01/07/2019 1 [place] [employer] Nicole Gus [id number] Nicole Gus Notes Date Note Type Note Provider Name and Address Organization Details Recorded Time 8 text/html Diabetes F/UReported bypatient.Review finger sticks:fastin Context:seeing eye doctor regularly;not taking aspirin daily Associated Symptoms:no weight gain; no weight lossNotes:A1C up to 6.5.Hospitalization Contact RecordReported bycaregiver.[facility] UpHospital[facility]; admit date: (Please enter in format 'MM/DD/YYYY') (04/26/2018); date of discharge: (Please enter in format 'MM/DD/YYYY') (04/28/2018); date of contact: (Please enter in format 'MM/DD/YYYY') (04/29/2018)Notes:Medica re covered inpatient stay? yes Medicare ROSHAN with in 48 working hours? yes High Complexity code valid on or before:April Moderate Complexity code valid on or before: April HCP on file? yes MOLST on file? no Discharge Summary available? yes 78 year old female admitted for a scheduled laparscopic incisional hernia repair with mesh. Patient tolerated procedure without complication. Patient was stable for discharge and clear on 04/28/18. Shredded Filler Cutter Operator ROSHAN call to her grand daughter , Mariangel who manages patient's care . Mariangel states patient is doing well . Patient denies chest pain, shortness of breath, nausea, vomiting or fever. Patient tolerating pain well , compliant with pain medication regimen. Patient's appetite and fluid intake is well . Patient has not yet passed bowel, has been taking Colace as directed . Aware not to strain to pass a bowel. Denies difficulty voiding. Grand daughter aware no heavy lifting , activities as tolerated. Patient compliant with discharge medications, no questions or concerns at this time. Still having persistent b/l abdominal pain, not associated with meals/constipation.Hyper tension F/UReported bypatient.Associated Symptoms:no dizziness; no lightheadedness; no chest pain; no shortness of breath; no palpitations; no edema Lifestyle:regular exercise; exercises 7 times/week; exercises for 30 minutes/day; limiting/avoiding salt Medications:taking medications as directed; no side effects from medication Elliot Johnson MD [address] [facility] [address], [place], [address], [facility] 07/09/2018 10:56:21 8 text/html Abdominal PainReported bypatient.Location:[facility] Quality:aching;tender Severity:mild Onset/Timing:wax/wane Associated Symptoms:no fever; no chills; no blood in the urine; no heartburn; no shortness of breathNotes:Has a history of lap cholecystectomy and partial colectomy. Was told in the past that she has hernias, unclear what type. Had an u/s in March 2016 which showed anterior wall hernias, nothing on left side. Hernia repaired in April but still having discomfort. Some improvement with PPI but persistent. Treated for UTI since last visit as well, but little impact on his symptoms.DizzinessReport ed bypatient.Context:non-sm oker Aggravating factors:moving head; positional change Associated Symptoms:no double vision; no blurred vision; no ringing in the earsNotes:Chronic issue. No improvement with valsartan dose decrease.Hypertension F/UReported bypatient.Associated Symptoms:no lightheadedness; no chest pain; no shortness of breath; no palpitations; no edema;dizziness Lifestyle:regular exercise; exercises 7 times/week; exercises for 30 minutes/day; limiting/avoiding salt Medications:taking medications as directed; no side effects from medicationNotes:Dizzines s persistent despite decrease in BP med. Has fallen twice since her last visit. Elliot Johnson MD [address], [address], [facility] 08/26/2018 09:22:37 9 text/html Hospitalization Contact RecordReported bypatient.Follow UpHospital: [facility]; admit date: (Please enter in format 'MM/DD/YYYY') (12/02/2018); date of discharge: (Please enter in format 'MM/DD/YYYY') (12/03/2018); date of contact: (Please enter in format 'MM/DD/YYYY') (12/04/2018)Notes:Medica re covered inpatient stay? yes Medicare ROSHAN with in 48 working hours? yes High Complexity code valid on or before:November Moderate Complexity code valid on or before: November HCP on file? yes MOLST on file? no Discharge Summary available? yes 78 year old female presents to [facility] with complaints of upper respiratory infection symptoms for the past 4 days. Patent found to be influenza A positive. Patient was started on Tamiflu for 5 days , despite onset of symptoms > 72 hours due to requiring inpatient stay.Patient given Robitussin for cough. U/A completed , impression signs of UTI, antibiotic withheld due to absence of UTI symptoms. Hyperlipidemia - continue veronica lovastatinHypertension: Hold hydrochlorothiazide Shredded Filler Cutter Operator ROSHAN call to patient's daughter Yann regarding discharge status. She reports patient is stable and resting at this time. Patient denies nausea, vomiting, fever, chest pain or shortness of breath.Appetite and fluid intake is well. Patient compliant with discharge medication , last dose of Tamiflu will be Sunday reports daughter . Coordinator scheduled patient with [facility] on Sunday12/17/18 at 8:30 am. Daughter aware to contact office prior to appointment with questions, concerns, change in status. Elliot Johnson MD [address] [address], [place], [address], [facility] 12/04/2018 10:31:50 9 text/html Hospitalization Contact RecordReported bypatient.Follow UpHospital: [facility]; admit date: (Please enter in format 'MM/DD/YYYY') (12/02/2018); date of discharge: (Please enter in format 'MM/DD/YYYY') (12/03/2018); date of contact: (Please enter in format 'MM/DD/YYYY') (12/04/2018)Notes:Medica re covered inpatient stay? yes Medicare ROSHAN with in 48 working hours? yes High Complexity code valid on or before:November Moderate Complexity code valid on or before: November HCP on file? yes MOLST on file? no Discharge Summary available? yes 78 year old female presents to [facility] with complaints of upper respiratory infection symptoms for the past 4 days. Patent found to be influenza A positive. Patient was started on Tamiflu for 5 days , despite onset of symptoms > 72 hours due to requiring inpatient stay.Patient given Robitussin for cough. U/A completed , impression signs of UTI, antibiotic withheld due to absence of UTI symptoms. Hyperlipidemia - continue veronica lovastatinHypertension: Hold hydrochlorothiazide Shredded Filler Cutter Operator ROSHAN call to patient's daughter Yann regarding discharge status. She reports patient is stable and resting at this time. Patient denies nausea, vomiting, fever, chest pain or shortness of breath.Appetite and fluid intake is well. Patient compliant with discharge medication , last dose of Tamiflu will be Sunday reports daughter . Coordinator scheduled patient with [facility] on Sunday12/17/18 at 8:30 am. Daughter aware to contact office prior to appointment with questions, concerns, change in status. Presents in hospital f/u influenza A took 5 days of tamiflu, urine tested positive for UTI but not treated due to no sx, but developed sx yesterday, frequency, burning, and dark urine. She is drining lots of water. still coughing a lot. She does have some production since last night, yellow colored. Sore throat, sunday she notes she had fever. No diarrhea, ear pain. No appetite. Roosevelt [address], [address], [facility] 12/17/2018 11:31:24 9 text/html Medicare Annual Wellness VisitReported bypatient.Diet and Nutrition:healthy diet Fracture Risk:no recent explained fracture; no sudden unexplained fractures; no previous musculoskeletal injuries;history of fractures Physical Activity:decreased physical activity Depression Risk:never feels sad, empty, or tearful; no loss of interest in activities; no significant changes in weight; no sleep disturbances or insomnia; no agitation; no loss of energy; no feelings of worthlessness or guilt; no thoughts of suicide; no history of depression; no history of mood disorders Orientation:no disorientation to time; no disorientation to date; no disorientation to place Concentration and Memory:no decreased concentrating ability; does not forget words;memory lapses or loss Speech/Motor difficulties:no speech difficulties; no difficulty expressing formulated concepts; no difficulty with fine manipulative tasks; no difficulty writing/copying; no slowed reaction time; does not knock things over when trying to pick them up Hearing:wears hearing aids Vision:no vision problems; wears glasses Activities of Daily Living:able to feed self with limited or no assistance; able to get out of chair or bed with limited or no assistance; able to groom with limited or no assistance; able to toilet with limited or no assistance;unable to bathe without assistance;unable to dress without assistance;unable to contol urination and bowels Instrumental Activities of Daily Living:unable to do house work without assistance;unable to grocery shop without assistance;unable to manage medications without assistance;unable to to prepare meals without assistance;unable to use the phone without assistance Falls Risk Assessment:no frequent falls while walking; no fall in the past year; no fall since last visit; no dizziness/vertigo Home Safety:no unsafe jadon hazzards; no unsafe stairs; no unsafe gas appliances; working smoke/CO detectors; use of seatbelts; has hand bars in the bathroom/shower; good lighting in the home Justine ro [facility] 01/07/2019 15:22:21 OBGyn Episode No OBEpisode recorded.
[2024-11-15 11:19] LABS: Estimated Average Glucose 123 mg/dL; Hemoglobin A1C 111.2425 umol/L; Hemoglobin A1c % 5.9 % (<6.0); Total Hemoglobin (HGBA1C) 2679.6812 umol/L
[2024-11-15 11:27] LABS: Alanine Aminotransferase 28 U/L (0-31); Albumin Level 4.2 g/dL (3.5-5.0); Alkaline Phosphatase 50 U/L (39-117); Anion Gap 13 (12-20); Aspartate Amino Transferase 41 U/L (5-31); Bilirubin Total 1.1 mg/dL (0.0-1.0); Blood Urea Nitrogen 10 mg/dL (9-16); Calcium 9.7 mg/dL (8.4-10.2); Carbon Dioxide 25 mmol/L (22-29); Chloride 106 mmol/L (96-108); Estimated Glomerular Filt Rate > 60; Glucose Random 119 mg/dL (60-115); Potassium 4.7 mmol/L (3.3-5.1); Sodium 139 mmol/L (135-145); Total Protein 7.2 g/dL (6.5-8.0)
== END 2024-11-15 09:40 | disposition home or self-care (01) ==
LOC: HO.LAB 09:39
PROVIDERS: PCP Internal Medicine; Visit Provider Internal Medicine
DX: E11.9 Type 2 diabetes mellitus without complications (principal); E78.00 Pure hypercholesterolemia, unspecified; E87.5 Hyperkalemia; I10 Essential (primary) hypertension
CPT/HCPCS: 36415; 80053; 83036